=== PATIENT | female | born 1955 | race Caucasian/White ===

== ENCOUNTER → 2018-02-01 10:45 | Outpatient (REF) | payer BC, SELFPAY ==
[2018-02-01 21:06] LABS: Abs Immature Grans 0.02 k/cumm (0.0-0.09); Absolute Basophil Count 0.09 k/cumm (0.0-0.2); Absolute Eosinophil Count 0.17 k/cumm (0.0-0.7); Absolute Lymphocyte Count 1.73 k/cumm (1.2-3.4); Absolute Monocyte Count 0.49 k/cumm (0.11-0.7); Absolute Neutrophil Count 4.35 k/cumm (1.2-6.7); Basophils % 1.3; Eosinophils % 2.5; HCT 39.1 % (36.0-46.0); HGB 12.4 g/dL (12.0-15.5); Immature Grans % 0.3; Lymphocytes % 25.3; Mean Corp. HGB Concentration 31.7 g/dL (32.0-36.0); Mean Corpuscular Hemoglobin 27.4 pg (27.0-33.0); Mean Corpuscular Volume 86.5 fL (80-95); Mean Platelet Volume 11.1 fL (8.0-11.0); Monocytes % 7.2; Neutrophils % 63.4; Platelet Count 495 x1000/uL (130-400); RBC 4.52 m/cumm (4.00-5.20); RBC Distribution Width 14.4 % (11.7-14.6); White Blood Cell Count 6.85 k/cumm (4.4-10.8)
[2018-02-01 21:28] LABS: TSH 0.19 uIU/mL (0.358-3.74)
[2018-02-02 10:30] LABS: FREE T4 0.87 ng/dL (0.76-1.46)
[2018-02-02 21:40] LABS: T3, Total 124 ng/dl (97-169)
== END ==
LOC: NCHCN 10:45
PROVIDERS: PCP Physician Assistant Medical; Visit Provider Physician Assistant Medical
DX: E03.9 Hypothyroidism, unspecified (principal); R61 Generalized hyperhidrosis
CPT/HCPCS: 84439; 84443; 84480; 85025

== ENCOUNTER 2018-04-12 21:42 | Outpatient (REF) | payer BC, SELFPAY ==
[2018-04-12 22:26] LABS: Abs Immature Grans 0.03 k/cumm (0.0-0.09); Absolute Basophil Count 0.09 k/cumm (0.0-0.2); Absolute Lymphocyte Count 2.35 k/cumm (1.2-3.4); Absolute Monocyte Count 0.47 k/cumm (0.11-0.7); Absolute Neutrophil Count 5.32 k/cumm (1.2-6.7); Basophils % 1.1; Eosinophils % 2.4; HCT 36.9 % (36.0-46.0); HGB 12.2 g/dL (12.0-15.5); Immature Grans % 0.4; Lymphocytes % 27.8; Mean Corp. HGB Concentration 33.1 g/dL (32.0-36.0); Mean Corpuscular Hemoglobin 28.2 pg (27.0-33.0); Mean Corpuscular Volume 85.4 fL (80-95); Mean Platelet Volume 10.6 fL (8.0-11.0); Monocytes % 5.6; Neutrophils % 62.7; Platelet Count 525 x1000/uL (130-400); RBC 4.32 m/cumm (4.00-5.20); RBC Distribution Width 13.5 % (11.7-14.6); White Blood Cell Count 8.46 k/cumm (4.4-10.8)
[2018-04-12 22:39] LABS: Anion Gap 12.2 mmol/L (3-11); BUN 16 mg/dL (7-18); CO2 23.8 mmol/L (21.0-32.0); Calcium 9.3 mg/dL (8.5-10.1); Chloride 102 mmol/L (98-107); Glucose 112 mg/dL (70-100); Potassium 4.5 mmol/L (3.5-5.1); Sodium 138 mmol/L (136-145); TSH 0.09 uIU/mL (0.358-3.74)
== END 2018-04-12 22:02 ==
LOC: NCHCN 21:42
PROVIDERS: PCP Physician Assistant Medical; Visit Provider Specialist/Technologist Athletic Trainer
DX: E03.9 Hypothyroidism, unspecified (principal); Z00.00 Encounter for general adult medical examination without abnormal findings; M17.11 Unilateral primary osteoarthritis, right knee
CPT/HCPCS: 80048; 84443; 85025

== ENCOUNTER 2018-04-30 13:05 | Outpatient (CLI) | payer BC, SELFPAY ==
--- NOTE | 2018-04-30 15:52 | DI.RAD_ITS ---
SYMPTOM/DIAGNOSIS: KNEE PAIN LT M25.562 LEFT KNEE: Four views. There is moderate frannie-articular spurring seen in both the medial and lateral femoral tibial joint spaces. There is mild narrowing at the medial femoral tibial joint. There is marked narrowing at the patella femoral joint with lateral subluxation. Periarticular spurring is seen involving the patella femoral joint. No acute fracture or dislocation is seen. The soft tissues are unremarkable. IMPRESSION: Marked osteoarthritis of the left knee particularly involving the patella femoral joint.
== END 2018-04-30 13:25 ==
PROVIDERS: PCP Physician Assistant Medical; Visit Provider Physician Assistant Medical
DX: M25.562 Pain in left knee (principal); M17.12 Unilateral primary osteoarthritis, left knee
CPT/HCPCS: 73564

== ENCOUNTER 2018-05-07 14:01 | Outpatient (CLI) | payer BC, SELFPAY ==
--- NOTE | 2018-05-07 14:05 | DI.RAD_ITS ---
SYMPTOMS/DIAGNOSIS: RT ANKLE INJURY RIGHT ANKLE: Three views were obtained. There appears to be mild soft tissue swelling of the ankle. The ankle mortise appears well maintained. No fracture is seen.
== END 2018-05-07 14:21 ==
PROVIDERS: PCP Physician Assistant Medical; Visit Provider Student in an Organized Health Care Education/Training Program
DX: M25.571 Pain in right ankle and joints of right foot (principal); M79.89 Other specified soft tissue disorders
CPT/HCPCS: 73610

== ENCOUNTER 2018-05-16 18:40 | Outpatient (REF) | payer BC, SELFPAY ==
[2018-05-16 20:15] LABS: Hemoglobin A1C 6.2 % (4.5-6.2)
[2018-05-16 20:24] LABS: TSH 0.37 uIU/mL (0.358-3.74)
== END 2018-05-16 19:00 ==
LOC: NCHCN 18:40
PROVIDERS: PCP Physician Assistant Medical; Visit Provider Physician Assistant Medical
DX: Z00.00 Encounter for general adult medical examination without abnormal findings (principal); Z13.1 Encounter for screening for diabetes mellitus; Z13.29 Encounter for screening for other suspected endocrine disorder
CPT/HCPCS: 83036; 84443

== ENCOUNTER 2018-06-11 00:38 | Outpatient (CLI) | payer BC, SELFPAY ==
--- NOTE | 2018-06-11 09:49 | DI.MRI_ITS ---
SYMPTOMS/DIAGNOSIS: LEFT KNEE ACUTE FLARE OF PAIN DUE TO INJURY 6 WEEKS AGO, ? CONTUSION LEFT KNEE MRI: MRI examination of the knee was performed according to the usual protocol. The examination is of poor technical quality due to patient size and motion. There are severe degenerative changes of the patellofemoral joint with lateral patellar subluxation and prominent lateral osteophytes of the patella and femur. There is a small knee joint effusion. There is abnormal signal in the lateral femoral condyle, which is nonspecific and which may be associated with degenerative change, the possibility of acute bony trabecular injury not excluded. There are prominent osteophytes of distal femur and proximal tibia and loss of cartilaginous joint spaces of the tibiofemoral joints. There is peripheral displacement of the lateral meniscus, which is probably torn in its posterior horn. Medial meniscus poorly visualized but also appears to lie somewhat peripheral to the joint and which may be torn. No gross cruciate ligament injury seen. CONCLUSION: Very limited study. Severe DJD; probable lateral meniscal tear; question bony trabecular injury, lateral femoral condyle.
== END 2018-06-11 00:58 ==
PROVIDERS: PCP Physician Assistant Medical; Visit Provider Physician Assistant
DX: M25.562 Pain in left knee (principal); M17.12 Unilateral primary osteoarthritis, left knee; M25.462 Effusion, left knee
CPT/HCPCS: 73721

== ENCOUNTER 2018-06-13 00:17 | Outpatient (CLI) | payer BC, SELFPAY ==
--- NOTE | 2018-06-13 08:21 | DI.MAMMO_ITS ---
SYMPTOMS/DIAGNOSIS: SCREENING, HEALTH MAINTENANCE EXAM, Z00.8 MAMMOGRAM: Mammograms were interpreted according to the usual protocol including computer analysis with CAD system, tomosynthesis and C view imaging. The breasts are of moderate density with fairly symmetrical distribution of fibroglandular tissue. No dominant mass or clumped microcalcification identified in either breast. Current examination is compared with multiple previous examinations including March 2017. Previously noted bilobed well- circumscribed nodule of the left breast is a little larger on today's examination measuring about 5 x 7 mm in diameter as compared to about 4 x 6 mm on the previous examination. No previous ultrasound examination is available for comparison. I would suggest that an additional evaluation of this finding with breast ultrasound be obtained for further characterization. No other significant findings or change. and there has been no gross interval change in appearance in comparison with the previous studies. CONCLUSION: Mild interval increase in size of indeterminate but probably benign well-circumscribed left breast mass, lower outer quadrant. Additional evaluation with breast ultrasound recommended. Category 0, breast density category B. FINAL MQSA ASSESSMENT OF FINDINGS: Probably benign. Six month follow-up recommended. Category 3. Patient will receive a letter notifying them of these results. BI-RADS category B. There are scattered areas of fibroglandular density.
== END 2018-06-13 00:37 ==
PROVIDERS: PCP Physician Assistant Medical; Visit Provider Physician Assistant Medical
DX: Z00.00 Encounter for general adult medical examination without abnormal findings (principal); Z12.31 Encounter for screening mammogram for malignant neoplasm of breast; R92.8 Other abnormal and inconclusive findings on diagnostic imaging of breast
CPT/HCPCS: 77063; 77067

== ENCOUNTER 2018-06-15 00:51 | Outpatient (CLI) | payer BC, SELFPAY ==
--- NOTE | 2018-06-15 10:00 | DI.US_ITS ---
SYMPTOM/DIAGNOSIS: F/U ABNL MAMMO, INCREASE IN SIZE OF MASS LEFT BREAST ULTRASOUND: At ultrasound, a small, well circumscribed nodule is noted in the infralateral portion of the left breast likely representing a very small intramammary lymph node or conceivably a very small cyst. Suffice to say, there is nothing to suggest a malignancy in this patient. Category 3. Follow up surveillance with a repeat ultrasound in 6 months is recommended. MQSA ASSESSMENT OF FINDINGS: Probably benign. Six month follow-up recommended. Category 3. Patient will receive a letter notifying them of these results.
== END 2018-06-15 01:11 ==
PROVIDERS: PCP Physician Assistant Medical; Visit Provider Physician Assistant Medical
DX: Z12.31 Encounter for screening mammogram for malignant neoplasm of breast (principal); R92.8 Other abnormal and inconclusive findings on diagnostic imaging of breast; N60.82 Other benign mammary dysplasias of left breast
CPT/HCPCS: 76642

== ENCOUNTER 2018-09-06 14:24 | Outpatient (CLI) | payer BC, SELFPAY ==
--- NOTE | 2018-09-06 14:30 | DI.RAD_ITS ---
SYMPTOMS/DIAGNOSIS: COUGH R05 PA AND LATERAL CHEST: The lungs are well expanded and free of infiltrate. There is no pleural effusion. The cardiovascular structures appear intact. The tracheal air column and mediastinum appear unremarkable. SUMMARY: No evidence of acute cardiopulmonary disease.
== END 2018-09-06 14:44 ==
PROVIDERS: PCP Physician Assistant Medical; Visit Provider Nurse Practitioner Family
DX: R05 Cough (principal)
CPT/HCPCS: 71046

== ENCOUNTER 2018-10-04 12:30 | Outpatient (CLI) | payer BC, SELFPAY ==
--- NOTE | 2018-10-04 13:01 | DI.RAD_ITS ---
SYMPTOMS/DIAGNOSIS: LT FOOT PAIN, M79.672 LEFT FOOT: Three views of the foot were obtained. There is a fracture of the fifth metatarsal involving the distal diaphysis of the bone with moderate displacement. No additional fracture seen. Note is made of mild degenerative changes of the mid foot joints and IP joints. CONCLUSION: Fifth metatarsal fracture as described above.
== END 2018-10-04 12:50 ==
PROVIDERS: PCP Physician Assistant Medical; Visit Provider Physician Assistant Medical
DX: M79.672 Pain in left foot (principal); S92.352A Displaced fracture of fifth metatarsal bone, left foot, initial encounter for closed fracture
CPT/HCPCS: 73630

== ENCOUNTER 2018-11-16 08:08 | Outpatient (CLI) | payer BC, SELFPAY ==
--- NOTE | 2018-11-16 08:00 | DI.RAD_ITS ---
SYMPTOM/DIAGNOSIS: LT FOOT PAIN, RT ANKLE PAIN, H/O TRAUMA, RT FOOT PAIN LEFT FOOT: Three views. Comparison is made with 10/04/18. There does not appear to be any significant change in alignment of the fracture involving the left fifth metatarsal. There has developed significant callous formation about the fracture site consistent with interval healing. No new fractures or dislocations are present. IMPRESSION: Healing left fifth metatarsal fracture. RIGHT FOOT: Three views. No acute fracture or dislocation is seen. The soft tissues are grossly unremarkable. There is a small enthesophyte at the posterior calcaneus. A small spur is seen at the posterior inferior calcaneus. Mild degenerative changes are seen in the foot. IMPRESSION: No acute abnormality. RIGHT ANKLE: Three views. No acute or healing fracture or dislocation is seen. There is a small spur at the posterior superior aspect of the calcaneus and a small plantar calcaneal spur. The bones are normally mineralized. The ankle joint is well maintained. The soft tissues are unremarkable. IMPRESSION: No acute abnormality.
== END 2018-11-16 08:28 ==
PROVIDERS: PCP Physician Assistant Medical; Visit Provider Student in an Organized Health Care Education/Training Program
DX: S92.352D Displaced fracture of fifth metatarsal bone, left foot, subsequent encounter for fracture with routine healing (principal); S93.401A Sprain of unspecified ligament of right ankle, initial encounter; M25.571 Pain in right ankle and joints of right foot; M79.671 Pain in right foot
CPT/HCPCS: 73610; 73630

== ENCOUNTER 2018-12-17 12:43 | Outpatient (CLI) | payer BC, SELFPAY ==
--- NOTE | 2018-12-17 13:26 | DI.RAD_ITS ---
SYMPTOMS/DIAGNOSIS: NEUROPATHY, G62.9 LUMBAR SPINE: No compression fractures are seen. There is moderate narrowing of the L2-3 disc and moderate endplate osteophytes. There is severe narrowing of the L5-S1 disc and moderate osteophytes. There are facet degenerative changes, greatest at L4- 5 and L5-S1. No spondylolysis, spondylolisthesis or scoliosis is seen. The hip joint spaces are well maintained. The SI joints show minimal degenerative changes. IMPRESSION: Degenerative disc changes at L2-3, L4-5 and L5-S1.
== END 2018-12-17 13:03 ==
PROVIDERS: PCP Physician Assistant Medical; Visit Provider Physician Assistant Medical
DX: G62.9 Polyneuropathy, unspecified (principal); M51.17 Intervertebral disc disorders with radiculopathy, lumbosacral region; M47.817 Spondylosis without myelopathy or radiculopathy, lumbosacral region
CPT/HCPCS: 72110

== ENCOUNTER 2018-12-17 13:35 | Outpatient (REF) | payer BC, SELFPAY ==
[2018-12-17 22:40] LABS: TSH 0.03 uIU/mL (0.358-3.74); Vitamin B12 260 pg/mL (193-986)
== END 2018-12-17 13:55 ==
LOC: NCHCN 13:35
PROVIDERS: PCP Physician Assistant Medical; Visit Provider Physician Assistant Medical
DX: G62.9 Polyneuropathy, unspecified (principal)
CPT/HCPCS: 82607; 83036; 84443

== ENCOUNTER 2018-12-31 11:39 | Outpatient (CLI) | payer BC, SELFPAY ==
--- NOTE | 2018-12-31 11:00 | DI.US_ITS ---
SYMPTOM/DIAGNOSIS: F/U LT BREAST MASS, R62.8 LEFT BREAST ULTRASOUND: The upper outer and lower outer quadrants of the left breast were evaluated sonographically. No cystic or solid masses are seen sonographically. IMPRESSION: Negative left breast ultrasound. No suspicious sonographic masses are seen. Category 1. MQSA ASSESSMENT OF FINDINGS: Negative. Category 1. Patient will receive a letter notifying them of these results.
== END 2018-12-31 11:59 ==
PROVIDERS: PCP Physician Assistant Medical; Visit Provider Physician Assistant Medical
DX: Z12.31 Encounter for screening mammogram for malignant neoplasm of breast (principal); R92.8 Other abnormal and inconclusive findings on diagnostic imaging of breast; N64.59 Other signs and symptoms in breast
CPT/HCPCS: 76642

== ENCOUNTER 2019-03-29 19:22 | Outpatient (REF) | payer BC, SELFPAY ==
[2019-03-29 19:57] LABS: Abs Immature Grans 0.02 k/cumm (0.0-0.09); Absolute Basophil Count 0.09 k/cumm (0.0-0.2); Absolute Eosinophil Count 0.14 k/cumm (0.0-0.7); Absolute Lymphocyte Count 1.51 k/cumm (1.2-3.4); Absolute Monocyte Count 0.38 k/cumm (0.11-0.7); Absolute Neutrophil Count 4.13 k/cumm (1.2-6.7); Basophils % 1.4; Eosinophils % 2.2; HCT 37.6 % (36.0-46.0); HGB 11.9 g/dL (12.0-15.5); Immature Grans % 0.3; Lymphocytes % 24.1; Mean Corp. HGB Concentration 31.6 g/dL (32.0-36.0); Mean Corpuscular Hemoglobin 26.7 pg (27.0-33.0); Mean Corpuscular Volume 84.5 fL (80-95); Mean Platelet Volume 10.6 fL (8.0-11.0); Monocytes % 6.1; Neutrophils % 65.9; Platelet Count 495 x1000/uL (130-400); RBC 4.45 m/cumm (4.00-5.20); RBC Distribution Width 14.8 % (11.7-14.6); White Blood Cell Count 6.27 k/cumm (4.4-10.8)
[2019-03-29 20:28] LABS: ALT 39 U/L (14-59); AST 26 U/L (15-37); Albumin 3.8 g/dL (3.4-5.0); Alkaline Phosphatase 98 U/L (46-116); Anion Gap 8.3 mmol/L (3-11); BUN 12 mg/dL (7-18); Bilirubin, Total 0.5 mg/dL (0.2-1.0); CO2 27.7 mmol/L (21.0-32.0); CREATININE 0.58 mg/dL (0.55-1.02); Calcium 9.2 mg/dL (8.5-10.1); Calculated LDL 93 mg/dL; Chloride 104 mmol/L (98-107); Cholesterol 190 mg/dL (50-200); Glucose 116 mg/dL (70-100); HDL Cholesterol 82 mg/dL (40-60); Potassium 4.7 mmol/L (3.5-5.1); Sodium 140 mmol/L (136-145); TSH 0.12 uIU/mL (0.36-3.74); Total Protein 7.1 g/dL (6.4-8.2); Triglyceride 78 mg/dL (30-150)
== END 2019-03-29 19:42 ==
LOC: NCHCN 19:22
PROVIDERS: PCP Physician Assistant Medical; Visit Provider Physician Assistant Medical
DX: E03.9 Hypothyroidism, unspecified (principal)
CPT/HCPCS: 80053; 80061; 84443; 85025

== ENCOUNTER 2019-05-10 11:14 | Outpatient (REF) | payer BC, SELFPAY ==
[2019-05-10 19:36] LABS: TSH 0.02 uIU/mL (0.36-3.74)
== END 2019-05-10 11:34 ==
LOC: NCHCN 11:14
PROVIDERS: PCP Physician Assistant Medical; Visit Provider Physician Assistant Medical
DX: E03.9 Hypothyroidism, unspecified (principal)
CPT/HCPCS: 84443

== ENCOUNTER 2019-06-28 16:23 | Outpatient (REF) | payer BC, SELFPAY ==
[2019-06-28 20:10] LABS: TSH 0.28 uIU/mL (0.36-3.74)
[2019-06-30 16:58] LABS: T3, Total 133 ng/dL (97-169)
== END 2019-06-28 16:43 ==
LOC: NCHCN 16:23
PROVIDERS: PCP Physician Assistant Medical; Visit Provider Physician Assistant Medical
DX: E03.9 Hypothyroidism, unspecified (principal)
CPT/HCPCS: 84443; 84480; 84481

== ENCOUNTER 2019-07-08 11:35 | Outpatient (REF) | payer BC, SELFPAY ==
[2019-07-08 21:59] LABS: FREE T4 1.02 ng/dL (0.76-1.46)
== END 2019-07-08 11:55 ==
LOC: NCHCN 11:35
PROVIDERS: PCP Physician Assistant Medical; Visit Provider Physician Assistant Medical
DX: E03.9 Hypothyroidism, unspecified (principal)
CPT/HCPCS: 84439

== ENCOUNTER 2019-09-17 09:38 | Emergency (ER) | payer BC, SELFPAY ==
[2019-09-17 09:42] VITALS: BP 155/81; PULSE 92; RESP 18; TEMP 37.1; O2SAT 96
--- NOTE | 2019-09-17 09:55 | ED.GENADUL_ITS ---
Discharge Plan Disposition Patient Disposition: HOME Condition: Stable Discharge Details Chief Complaint: Laceration Clinical Impression: Laceration of finger Primary Care Provider: Brenda Hedrick ED Provider: Dorene Johnson Home Meds and New Rx's Prescriptions: Continued Centrum Silver Women 8 mg iron-400 mcg-300 mcg tablet 1 tab PO DAILY RF: 0 azelastine-fluticasone 137-50 mcg/spray spray,non-aerosol 1 spray SPENSER Q12H RF: 0 aspirin 325 MG tablet 325 mg PO DAILY RF: 0 albuterol sulfate [Proventil HFA] 6.7 GM HFA aerosol inhaler 6.7 gm Inhalation PRN PRNRF: 0 levothyroxine 25 mcg tablet 12.5 mcg PO DAILY RF: 0 sertraline [Zoloft] 50 mg tablet 50 mg PO QPM RF: 0 modafinil 100 MG tablet 100 mg PO PRN PRNRF: 0 Advair HFA 60 PUFF HFA aerosol inhaler 2 puff Inhalation BID RF: 0 Discharge Instructions Instructions: Finger Laceration (ED), Skin Adhesive Care (ED) Additional Instructions: Follow up with primary care provider in 3-5 days. Return to ED sooner if any worsening or concerns. Increase oral fluids. Please take Tylenol or Ibuprofen with food every 4-6 hours as needed for pain and swelling. Glue fall off in 4 to 6 days. Do not scrub it. Return for any worsening symptoms or signs of infection redness swelling drainage or red streaks. Referrals: Brenda Hedrick PA [Primary Care Provider] - Medical Decision Making 64-year-old female presents with 0.5 cm laceration to the distal tip of her left middle finger. This occurred proximately 30 minutes prior to arrival. Upon initial exam bleeding is controlled with pressure. She has full range of motion to her digit. No other complaints. Bleeding is controlled with pressure, laceration closed with skin adhesive as noted in procedure note. Wound well approximated. Patient is up-to-date on her tetanus vaccination. Patient discharged with home care, verbalized understanding. HPI General Mode of arrival: ambulatory . Date/Time Provider Initiated Documentation: 09/17/19 09:48 . Limitations to Documentation: no limitations . Information obtained by: patient . HPI Narrative: 64-year-old female presents with 0.5 cm laceration to the distal tip of her left middle finger. This occurred proximately 30 minutes prior to arrival. Upon initial exam bleeding is controlled with pressure. She has full range of motion to her digit. No other complaints. Related Data Home Medications Medication Instructions Recorded Confirmed albuterol sulfate [Proventil HFA] 6.7 gm INHALATION PRN PRN 03/09/13 09/17/19 modafinil 100 mg PO PRN PRN 03/06/15 09/17/19 aspirin 325 mg PO DAILY tab-cap 03/20/17 09/17/19 Advair HFA 2 puff INHALATION BID 05/08/17 09/17/19 azelastine-fluticasone 137 mcg-50 1 spray SPENSER Q12H 05/07/18 09/17/19 mcg/spray nasal spray multivit with 1 tab PO DAILY 05/07/18 09/17/19 vcfvjcns-lyac-TL-lutein 8 mg iron-400 mcg-300 mcg tablet levothyroxine 25 mcg tablet 12.5 mcg PO DAILY tab 07/01/19 09/17/19 sertraline 50 mg tablet 50 mg PO QPM tab 07/01/19 09/17/19 Allergies Allergy/AdvReac Type Severity Reaction Status Date / Time Sulfa (Sulfonamide Allergy Severe Hives Verified 09/17/19 09:51 Antibiotics) hydrocodone bitartrate Allergy Mild Itching Verified 09/17/19 09:51 [From Vicodin] methimazole [From Tapazole] Allergy Verified 09/17/19 09:51 prednisone Allergy Itching Verified 09/17/19 09:51 General Stated Complaint: Laceration SOLANGE: 4 Review of Systems Narrative: Constitutional: Negative for weight loss, alert and oriented, well groomed, normal body habitus, appears comfortable. HEENT: Denies trauma, headaches, blurry vision, nasal discharge, sore throat, trouble swallowing. Chest: Denies chest pain, palpitations, irregular rhythm, hypertension. Respiratory: Denies Shortness of breath, cough, hemoptysis. [facility] Medical History Anxiety Asthma Atrophic vaginitis Back pain, chronic Depression History of pulmonary embolus (PE) Hypothyroidism Impaired fasting glucose Obesity Osteoarthritis Surgical History Colonoscopy - MAC (05/15/17) Social History Smoking/Tobacco Use Status: Never Alcohol Intake: current Alcohol Intake frequency: a few times a week Drug use: Never Current gender identity: female Do you feel safe at home: Yes Do you feel safe in your relationship?: Yes Exam Narrative Exam Narrative: Constitutional: Allert and oriented x3. Appears stated age. Normal body habitus. Head: Normocephalic, no trauma. Eyes: Pupils PERRLA, Red reflex noted, EOM's intact. Eyelids symmetrical withour lesions, discharge, or swelling. ENT: Bilateral TM's WNL, External ear normal to inspection, no mastoid TTP, swelling, or erythema, Nasal turbinates WNL, no nasal discharge. Normal dentition, Posterior pharynx WNL, no exudate. Chest: RRR, Normal S1, S2, distal pulses intact. Resp: Lungs clear to auscultation bilaterally, no wheezes, rales, or rhonchi. Musculoskeletal: Normal gait, 5/5 strength to all four extremities. Skin: No suspicious rashes or lesions. Capillary refill less than 2 sec. laceration noted to the distal tip of her left middle finger. Neurologic: Cranial nerves II-XII intact. Alert and oriented x 3. DTR's intact. Hematologic/Lymphatic: No ecchymosis, no lymphadenopathy. Skin Trauma: laceration left distal 3rd finger linear Course Vital Signs Vital signs: Vital Signs Temperature 37.1 C 09/17/19 09:42 Pulse 92 H 09/17/19 09:42 Respiratory Rate 18 09/17/19 09:42 Blood Pressure 155/81 H 09/17/19 09:42 Pulse Oximetry 96 09/17/19 09:42 Temperature 37.1 C 09/17/19 09:42 Temperature Source Oral 09/17/19 09:42 Pulse 92 H 09/17/19 09:42 Respiratory Rate 18 09/17/19 09:42 Respiratory Effort Non-Labored 09/17/19 09:46 Blood Pressure 155/81 H 09/17/19 09:42 Blood Pressure Position Sitting 09/17/19 09:42 Pulse Oximetry 96 09/17/19 09:42 Oxygen Delivery Method Room Air 09/17/19 09:42 Oxygen Flow Rate 0 09/17/19 09:42 Pain Level 0 09/17/19 09:42 Procedures Laceration Laceration 1: Site: hand Side (If applicable): left Size (cm): 0.5 Description: linear Skin layer closed with: other (Skin adhesive)
== END 2019-09-17 10:13 | disposition home or self-care (01) ==
LOC: ER 10:10
PROVIDERS: Emergency Provider Registered Nurse Emergency; PCP Physician Assistant Medical
DX: S61.213A Laceration without foreign body of left middle finger without damage to nail, initial encounter (principal); W26.0XXA Contact with knife, initial encounter
CPT/HCPCS: 12001

== ENCOUNTER 2019-10-25 15:59 | Outpatient (REF) | payer BC, SELFPAY ==
[2019-10-25 19:15] LABS: TSH (W/Ref FT4) 0.34 uIU/mL (0.36-3.74)
[2019-10-25 19:36] LABS: FREE T4 0.93 ng/dL (0.76-1.46)
== END 2019-10-25 16:19 ==
LOC: NCHCN 15:59
PROVIDERS: PCP Physician Assistant Medical; Visit Provider Physician Assistant Medical
DX: E03.9 Hypothyroidism, unspecified (principal)
CPT/HCPCS: 84439; 84443

== ENCOUNTER 2020-03-23 16:29 | Outpatient (REF) | payer BC, SELFPAY ==
--- NOTE | 2020-03-23 15:30 | SKI_PTH ---
PATIENT: Zuly Liu LOC: [facility] U#:[id number] AGE/SX: 64/F ROOM: RE03/23/[address]: Rene Kinsey DO : 1955 BED: DIS: 03/23/2020 SPEC #: [id number] RECD: 03/24/20 09:28 STATUS: RAÚL REQ #: [id number] SHER: 03/23/20 15:[address]: Rene Kinsey DEPT: Surgical Specimen RECD BY: Uyen Breen ENTERED: 03/24/20 09:28 SP TYPE: SKI OTHR DR: Brenda Hedrick Tissues: 1 - SKIN BIOPSY(SHAVE/PUNCH) Procedures: SKIN LEVEL 4 Comments: [id number]
== END 2020-03-23 16:49 ==
LOC: LBN 16:29
PROVIDERS: PCP Physician Assistant Medical; Visit Provider Otolaryngology Otolaryngology/Facial Plastic Surgery
DX: L82.1 Other seborrheic keratosis (principal)
CPT/HCPCS: 88305

== ENCOUNTER 2020-05-11 17:57 | Outpatient (REF) | payer BC, SELFPAY ==
[2020-05-11 19:56] LABS: TSH 0.08 uIU/mL (0.36-3.74)
== END 2020-05-11 18:17 ==
LOC: NCHCN 17:57
PROVIDERS: PCP Physician Assistant Medical; Visit Provider Physician Assistant Medical
DX: E03.9 Hypothyroidism, unspecified (principal)
CPT/HCPCS: 84443

== ENCOUNTER 2020-07-22 20:49 | Outpatient (REF) | payer BC, SELFPAY ==
[2020-07-22 20:16] LABS: Abs Immature Grans 0.03 10^3/uL (0.0-0.06); Absolute Eosinophil Count 0.14 10^3/uL (0.0-0.7); Absolute Lymphocyte Count 2.15 10^3/uL (1.2-3.4); Absolute Monocyte Count 0.58 10^3/uL (0.1-0.8); Absolute Neutrophil Count 5.98 10^3/uL (1.2-6.7); Basophils % 1.1; Eosinophils % 1.6; HCT 39.5 % (36.0-46.0); HGB 12.8 g/dL (11.2-15.7); Immature Grans % 0.3; Lymphocytes % 23.9; MCHC 32.4 % (32.0-36.0); MCV 89.4 fL (80-95); MPV 10.2 fL (8.0-11.0); Monocytes % 6.5; Neutrophils % 66.6; Nucleated RBC 0 %; Platelet Count 627 10^3/uL (130-400); RBC 4.42 10^6/uL (3.93-5.22); RDW 13.8 % (11.7-14.6); RDW-SD 44.7 fL; WBC 8.98 10^3/uL (4.4-10.8)
[2020-07-22 20:55] LABS: ALT 35 U/L (14-59); AST 17 U/L (15-37); Albumin 4.1 g/dL (3.4-5.0); Alkaline Phosphatase 118 U/L (46-116); Anion Gap 10.4 mmol/L (3-11); BUN 5 mg/dL (7-18); Bilirubin, Total 0.6 mg/dL (0.2-1.0); CO2 26.6 mmol/L (21.0-32.0); CREATININE 0.6 mg/dL (0.55-1.02); Calcium 9.6 mg/dL (8.5-10.1); Chloride 102 mmol/L (98-107); Glucose 92 mg/dL (74-106); Potassium 4.6 mmol/L (3.5-5.1); Sodium 139 mmol/L (136-145); TSH 0.66 uIU/mL (0.36-3.74); Total Protein 7.5 g/dL (6.4-8.2)
== END 2020-07-22 20:50 | disposition home or self-care (01) ==
LOC: NCHCN 20:49
PROVIDERS: PCP Physician Assistant Medical; Visit Provider Physician Assistant Medical
DX: E03.9 Hypothyroidism, unspecified (principal)
CPT/HCPCS: 80053; 84443; 85025

== ENCOUNTER 2020-08-05 01:25 | Outpatient (CLI) | payer BC, SELFPAY ==
--- NOTE | 2020-08-05 | DI.CT_ITS ---
EXAM: CT ABDOMEN PELVIS W CLINICAL HISTORY: LOW ABD PAIN, R10.30. TECHNIQUE: Imaging Protocol: Axial computed tomography images with coronal and sagittal reformatted images were created and reviewed CONTRAST MATERIAL: Intravenous: Omnipaque 100cc Oral: None COMPARISON: No exams were available for comparison FINDINGS: VISUALIZED LUNG BASES: Tiny 2 millimeters subpleural nodule noted in the lateral basal segment left l ower lobe. No pleural effusions.. ABDOMEN: There is no ascites. LIVER: There are no obvious focal hepatic lesions evident . GALLBLADDER/BILIARY: No obvious gallbladder pathology. CBD is not dilated. PANCREAS: No evidence of pancreatic mass nor dilatation of the pancreatic duct. SPLEEN: Spleen size is upper normal-minimally prominent. There are no intrasplenic lesions. Splenic and portal veins are patent. ADRENALS: There is a nodule in the right adrenal gland which measures 1.6 by 1.2 cm. Left adrenal gl and unremarkable. KIDNEYS:No cysts evident. No solid renal masses. No calculi nor hydronephrosis.. ABDOMINAL AORTA: Abdominal aorta is not enlarged and there is no pwabypczrlawoef-zxil-rlnhtu adenopat hy. ABDOMINAL WALL/GI: No evidence of significant anterior abdominal wall hernia. No bowel obstruction. PELVIS: GI: There is a round 4 millimeter calcification in the right-sided mesentery medial to the cecum. Th is may be an appendicolith. There is no obvious acute appendicitis.No evidence of sigmoid diverticul itis. LYMPH NODES: There is no intrapelvic nor inguinal adenopathy. REPRODUCTIVE: Age-appropriate URINARY BLADDER: No calculi nor obvious masses evident OSSEOUS: Chronic degenerative disc disease lower lumbar spine. No lytic osseous lesions identified. IMPRESSION: 1. There is a 16 x 12 millimeter nodule in the right adrenal gland, probably an incidental adenoma. There are no findings in the opposite-left adrenal gland. 2. 4 millimeter calcification noted in the right lower quadrant mesentery. This may represent a smal l calcified lymph node. No other consideration would be for a possible appendicoliths. There is, ho wever, no evidence of obvious acute appendicitis. 3. There is no ascites. 4. Tiny subpleural nodule in the left lung base noted. No pleural effusions. RADIATION DOSE DELIVERED: 1,031.15mGy.cm Total DLP DATA REPOSITORY: All CT scans at this facility are submitted to the National Radiology Data Registry (NRDR) Dose Index Registry (DIR) with the [employer] (ACR). RADIATION OPTIMIZATION: All CT scans at this facility use at least one of these dose optimization te chniques: automated exposure control; mA and/or kV adjustment per patient size (includes targeted exa ms where dose is matched to clinical indication); or iterative reconstruction.
[2020-08-05] MEDS: Omnipaque 350 MG/ML 100 ML BTL IV (09:02)
[2020-08-05] MEDS: Normal Saline Flush 10 ML SYR IVP (09:10)
[2020-08-05] MEDS: Normal Saline - Diluent 50 ML VIAL IV (09:10)
[2020-08-05] MEDS: Omnipaque 350 MG/ML 50 ML BTL PO (09:11)
[2020-08-05] MEDS: Breeza Beverage 473 ML BTL PO (09:11)
== END 2020-08-05 01:26 ==
LOC: DI 01:25
PROVIDERS: PCP Physician Assistant Medical; Visit Provider Physician Assistant Medical
DX: R10.31 Right lower quadrant pain (principal); E27.8 Other specified disorders of adrenal gland; R91.1 Solitary pulmonary nodule
CPT/HCPCS: 74177; J3490; Q9967

== ENCOUNTER 2020-09-29 01:52 | Outpatient (CLI) | payer BC, SELFPAY ==
--- NOTE | 2020-09-29 | DI.MAMMO_ITS ---
EXAM: MG MAMMO SCREENING CLINICAL HISTORY: SCREENING,HEALTH MAINTENANCE EXAM,Z00.8 TECHNIQUE: Bilateral full field digital CC and MLO mammographic images were obtained with 3D tomosyn thesis and utilizing computer aided detection (CAD). COMPARISON: Available for comparison. FINDINGS: Masses/Architectural Distortion: There has been interval increase in size in the bilobed nodule in th e outer left breast. It currently measures 9 mm compared with 7 mm on the prior examination. Microcalcifications: No suspicious pleomorphic-type are seen. Skin Thickening/Nipple Retraction: None. IMPRESSION: 1. Interval increase in size of left breast nodule. 2. Additional views of the left breast and a left breast ultrasound are requested for further evaluat ion. BI-RADS Category 0 - Assessment Incomplete: Need additional imaging evaluation Breast Density - Category B - Scattered areas of fibroglandular density Breast density category C or D implies that the patient has dense breast tissue. Dense breast tissue is very common and is not abnormal but dense breast tissue can make it harder to find cancer on a ma mmogram. Also, dense breast tissue may increase their breast cancer risk. This information about the result of the mammogram report was provided to the patient to raise their awareness. Use this report when you speak with the patient about their risks for breast cancer, which includes their family hist ory. At that time, you may recommend for more screening tests (Ultrasound or MRI) as they might be us eful based on their risk. A negative radiographic report should not delay biopsy if a dominant or clinically suspicious mass is present. Up to ten percent of cancers are not identified on mammography. A negative report may reinforce clinical impression. Adenosis and dense breasts may obscure an underlying neoplasm. False positive reports average 6 to 10%. Patient will receive a letter notifying them of these results.
== END 2020-09-29 02:12 ==
PROVIDERS: PCP Physician Assistant Medical; Visit Provider Physician Assistant Medical
DX: Z00.00 Encounter for general adult medical examination without abnormal findings (principal); Z12.31 Encounter for screening mammogram for malignant neoplasm of breast; R92.8 Other abnormal and inconclusive findings on diagnostic imaging of breast
CPT/HCPCS: 77063; 77067

== ENCOUNTER 2020-10-02 03:37 | Outpatient (CLI) | payer BC, SELFPAY ==
--- NOTE | 2020-10-02 | DI.US_ITS ---
EXAM: MG MAMMO SCREEN CALL BACK UNI and U/S breast LT limited CLINICAL HISTORY: F/U MAMMO, INCREASE IN SIZE OF LT BREAST NODULE. TECHNIQUE: Craniocaudal and mediolateral oblique Full Field Digital Mammography views of the left br east with Computer Aided Diagnosis followed by Tomosynthesis and left breast ultrasound. COMPARISON: Previous available for comparison. FINDINGS: Mammography/Tomosynthesis: Masses/Architectural Distortion: There is again seen a well-circumscribed nodule in the outer left br east. Microcalcifictions: No suspicious pleomorphic-type are seen. Skin Thickening/Nipple Retraction: None. Left breast US: Echotexture: Normal appearance of the glandular tissue. Shadowing: No suspicious foci. Cyst: There is a 0.9 x 0.4 x 0.7 cm cyst at the 4 o'clock position of the left breast 8 cm from the n ipple. This would appear to correspond to the mammographic abnormality. Solid lesions: None seen. Ductal dilation: None. IMPRESSION: 1. No evidence of malignancy is noted. 2. Unless there is more urgent need, follow-up screening mammography is recommended, as per [employer] [place] guidelines. 3. The findings were discussed with the patient on the date of the examination. BI-RADS Category 2 - Benign Findings Breast Density - Category B - Scattered areas of fibroglandular density Breast density Category C or D implies that the patient has dense breast tissue. Dense breast tissue can make it harder to find cancer on a mammogram. Dense breast tissue is also associated with an incr eased risk of breast cancer. This information about the result of the mammogram report was provided to the patient to raise their awareness. Use this report when you speak with the patient about their risks for breast cancer, which includes their family history. At that time, you may recommend additional screening tests (Ultrasoun d or MRI) as these tests may add significant information. A negative radiographic report should not delay biopsy if a dominant or clinically suspicious mass is present. Up to ten percent of cancers are not identified on mammography. A negative report may reinforce clinical impression. Adenosis and dense breasts may obscure an underlying neoplasm. False positive reports average 6 to 10%. Patient will receive a letter notifying them of these results.
== END 2020-10-02 03:57 ==
PROVIDERS: PCP Physician Assistant Medical; Visit Provider Physician Assistant Medical
DX: Z12.31 Encounter for screening mammogram for malignant neoplasm of breast (principal); R92.8 Other abnormal and inconclusive findings on diagnostic imaging of breast; N60.02 Solitary cyst of left breast
CPT/HCPCS: 76642; 77063; 77067

== ENCOUNTER 2021-02-08 15:40 | Outpatient (CLI) | payer BC, SELFPAY ==
--- NOTE | 2021-02-08 15:15 | DI.RAD_ITS ---
Exam(s) XR KNEE LT 3V AP,LAT,SIENNA EXAM: XR KNEE LT 3V AP,LAT,SIENNA CLINICAL HISTORY: LEFT KNEE PAIN. TECHNIQUE: 2D digital imaging was performed. COMPARISON: CR LEFT KNEE 4+ VIEWS from 07/13/2015 FINDINGS: There is no evidence of fracture or obvious joint effusion. Advanced vyzn-hy-nrfo narrowing of the p atellofemoral compartment is unchanged. Moderate-advanced degenerative changes in the medial lateral compartments are again noted. No osseous lesions. IMPRESSION: Tricompartmental osteoarthritic degenerative changes again noted. DATA REPOSITORY: RADIATION DOSE DELIVERED:
== END 2021-02-08 15:41 | disposition home or self-care (01) ==
LOC: DIORS 15:40
PROVIDERS: PCP Physician Assistant Medical; Visit Provider Student in an Organized Health Care Education/Training Program
DX: M25.562 Pain in left knee (principal); M17.12 Unilateral primary osteoarthritis, left knee
CPT/HCPCS: 73562

== ENCOUNTER 2021-02-10 10:17 | Outpatient (REF) | payer BC, SELFPAY ==
[2021-02-10 14:34] LABS: Abs Immature Grans 0.03 10^3/uL (0.0-0.06); Absolute Basophil Count 0.07 10^3/uL (0.0-0.2); Absolute Monocyte Count 0.43 10^3/uL (0.1-0.8); Absolute Neutrophil Count 5.61 10^3/uL (1.2-6.7); Basophils % 0.9; Eosinophils % 1.3; HCT 39.2 % (36.0-46.0); HGB 12.6 g/dL (11.2-15.7); Immature Grans % 0.4; Lymphocytes % 19.4; MCH 28.6 pg (27.0-33.0); MCHC 32.1 % (32.0-36.0); MCV 89.1 fL (80-95); MPV 10.4 fL (8.0-11.0); Monocytes % 5.6; Neutrophils % 72.4; Nucleated RBC 0 %; Platelet Count 539 10^3/uL (130-400); RDW 13.3 % (11.7-14.6); RDW-SD 43.5 fL; WBC 7.74 10^3/uL (4.4-10.8)
[2021-02-10 14:48] LABS: Prothrombin Time 10.4 sec (9.3-11.0)
[2021-02-10 14:51] LABS: Bilirubin Negative (Negative); Blood Negative (Negative); Clarity Clear (Clear); Glucose Negative (Negative); Ketones Negative (Negative); Leukocyte Esterase Negative (Negative); Nitrite Negative (Negative); Specific Gravity 1.025 (1.005-1.025); Urobilinogen 0.2 EU/dL (Up TO 0.2)
[2021-02-10 14:52] LABS: ALT 33 U/L (14-59); AST 21 U/L (15-37); Alkaline Phosphatase 90 U/L (46-116); Anion Gap 11.6 mmol/L (3-11); BUN 15 mg/dL (7-18); Bilirubin, Total 0.4 mg/dL (0.2-1.0); CO2 25.4 mmol/L (21.0-32.0); CREATININE 0.7 mg/dL (0.55-1.02); Calcium 9.1 mg/dL (8.5-10.1); Calculated LDL 88 mg/dL (<100); Chloride 105 mmol/L (98-107); Cholesterol 192 mg/dL (<200); Glucose 113 mg/dL (74-106); HDL Cholesterol 77 mg/dL (40-60); Sodium 142 mmol/L (136-145); TSH (W/Ref FT4) 0.34 uIU/mL (0.36-3.74); Total Protein 7.2 g/dL (6.4-8.2); Triglyceride 137 mg/dL (<150)
[2021-02-10 14:57] LABS: Hemoglobin A1C 6.1 % (<5.7)
[2021-02-10 15:12] LABS: FREE T4 0.92 ng/dL (0.76-1.46)
[2021-02-10 15:14] LABS: D-Dimer 872 ng/mlFEU (<500)
[2021-02-11 00:36] LABS: COVID-19 RT-PCR UVMMC Result Negative (Negative)
[2021-02-11 00:42] LABS: Vitamin D 25 Total 33.9 ng/mL (30-100)
[2021-02-11 10:06] LABS: Lyme Ab w Rflx to Lyme Confirm Negative (Negative)
[2021-02-12 23:25] LABS: Anaplasma phagocytophilum Negative (Negative); B. miyamotoi PCR Negative (Negative); Babesia divergens/MO-1 Negative (Negative); Babesia duncani Negative (Negative); Babesia microti Negative (Negative); Ehrlichia chaffeensis Negative (Negative); Ehrlichia ewingii/canis Negative (Negative); Ehrlichia muris eauclairensis Negative (Negative)
== END 2021-02-10 10:18 | disposition home or self-care (01) ==
LOC: LBN 10:17
PROVIDERS: PCP Physician Assistant Medical; Visit Provider Nurse Practitioner Family
DX: D47.3 Essential (hemorrhagic) thrombocythemia (principal); E03.9 Hypothyroidism, unspecified; E27.9 Disorder of adrenal gland, unspecified; R73.03 Prediabetes; M17.11 Unilateral primary osteoarthritis, right knee; Z86.711 Personal history of pulmonary embolism; R68.83 Chills (without fever)
CPT/HCPCS: 80053; 80061; 82306; 87798; U0003; 81003; 83036; 84439; 84443; 85025; 85379; 85610; 85730; 86618

== ENCOUNTER 2021-07-20 08:38 | Outpatient (CLI) | payer BC, SELFPAY ==
--- NOTE | 2021-07-20 08:00 | DI.RAD_ITS ---
Exam(s) XR KNEE LT 1V XR STANDING ALIGNMENT EXAM: XR STANDING ALIGNMENT and XR knee LT 1 V CLINICAL HISTORY: L TKA planning. TECHNIQUE: 2D digital imaging was performed. COMPARISON: CR XR KNEE LT 3V AP,LAT,SIENNA from 02/08/2021 CR XR KNEE LT 1V from 07/20/2021 FINDINGS: BONES: No acute fracture is present. No bony destructive lesion is seen. The hips are well maintained with mild degenerative changes present. Moderately severe degenerative changes are seen in the righ t knee with joint space narrowing and periarticular spurring present. The findings are most marked i n the medial femoral tibial joint space. There again seen marked degenerative changes of the left kn ee with joint space narrowing subchondral sclerosis and periarticular spurring. The findings are mos t marked in the patellofemoral joint. The ankles are well maintained. There is no significant leg l ength discrepancy. SOFT TISSUE: Normal. IMPRESSION: Osteoarthritis of the knees bilaterally, left greater than right. DATA REPOSITORY: RADIATION DOSE DELIVERED:
== END 2021-07-20 08:39 | disposition home or self-care (01) ==
LOC: DIORS 08:38
PROVIDERS: PCP Physician Assistant Medical; Referring Provider Physician Assistant Medical; Visit Provider Physician Assistant
DX: M25.562 Pain in left knee; M17.12 Unilateral primary osteoarthritis, left knee
CPT/HCPCS: 73560; 77073

== ENCOUNTER 2021-08-02 01:22 | Outpatient (CLI) | payer BC, SELFPAY ==
[2021-08-02 09:44] LABS: HCT 38.2 % (36.0-46.0); HGB 12.5 g/dL (11.2-15.7); MCH 28.9 pg (27.0-33.0); MCHC 32.7 % (32.0-36.0); MCV 88.4 fL (80-95); Platelet Count 534 10^3/uL (130-400); RBC 4.32 10^6/uL (3.93-5.22); RDW 12.9 % (11.7-14.6); RDW-SD 42.3 fL; WBC 8.06 10^3/uL (4.4-10.8)
[2021-08-02 10:58] LABS: Anion Gap 7.9 mmol/L (3-11); BUN 15 mg/dL (7-18); CO2 28.1 mmol/L (21.0-32.0); CREATININE 0.7 mg/dL (0.55-1.02); Calcium 9.2 mg/dL (8.5-10.1); Chloride 104 mmol/L (98-107); Glucose 110 mg/dL (74-106); Potassium 4.6 mmol/L (3.5-5.1); Sodium 140 mmol/L (136-145)
[2021-08-02 20:12] LABS: COVID-19 PCR Negative (Negative)
[2021-08-02 20:14] LABS: Source Nasal/Nares
== END 2021-08-02 01:23 | disposition home or self-care (01) ==
LOC: LBO 01:22
PROVIDERS: PCP Physician Assistant Medical; Visit Provider Student in an Organized Health Care Education/Training Program
DX: M25.562 Pain in left knee (principal); M17.12 Unilateral primary osteoarthritis, left knee; Z20.822 Contact with and (suspected) exposure to COVID-19; Z01.818 Encounter for other preprocedural examination; Z01.812 Encounter for preprocedural laboratory examination
CPT/HCPCS: 36415; 80048; 85027; 87635

== ENCOUNTER 2021-08-03 07:23 | Observation (INO) | payer BC, SELFPAY ==
[2021-08-03] VITALS (9 sets, daily range): BP systolic 114–146; BP diastolic 62–86; PULSE 56–84; RESP 11–18; TEMP 35.7–37.3; O2SAT 94–99; BMI 37.1
--- NOTE | 2021-08-03 08:08 | W.ANESPRE ---
General Info Date of Service Date Performed: 08/03/21 Height: 5 ft 5 in Weight: 101.2 kg Body Mass Index (BMI): 37.1 Surgical Procedure: Operation Date: 08/03/21 10:10 Proposed Procedure Side Surgeon p (L) Knee Total Arthroplasty Left Harsh [place] MD Meds Allergies and Home Medications Allergies Allergy/AdvReac Type Severity Reaction Status Date / Time Sulfa (Sulfonamide Allergy Severe Hives Verified 08/03/21 07:59 Antibiotics) hydrocodone bitartrate Allergy Mild Itching Verified 08/03/21 07:59 [From Vicodin] methimazole [From Tapazole] Allergy Verified 08/03/21 07:59 prednisone Allergy Itching Verified 08/03/21 07:59 Home Medication Medication Instructions Recorded albuterol sulfate 90 mcg/actuation 6.7 gm INHALATION PRN PRN 03/09/13 aerosol inhaler (Proventil HFA) modafinil 100 mg tablet 100 mg PO PRN PRN 03/06/15 fluticasone propionate 115 2 puff INHALATION BID 05/08/17 mcg-salmeterol 21 mcg/actuation HFA inhaler (Advair HFA) azelastine-fluticasone 137 mcg-50 1 spray SPENSER Q12H 05/07/18 mcg/spray nasal spray multivit with 1 tab PO DAILY 05/07/18 klmdjuhw-bnjr-HH-lutein 8 mg iron-400 mcg-300 mcg tablet (Centrum Silver Women) sertraline 50 mg tablet (Zoloft) 50 mg PO QPM tab 07/01/19 apixaban 5 mg tablet (Eliquis) 5 mg PO BID 02/19/21 cholecalciferol (vitamin D3) 25 25 mcg PO DAILY 07/20/21 mcg (1,000 unit) tablet levothyroxine 25 mcg tablet 12.5 mcg PO DAILY tab 07/20/21 loratadine 10 mg tablet 10 mg PO DAILY 07/20/21 vit C 250 mg-vit E 90 mg-zinc 40 1 tab PO BID 07/20/21 mg-copper 1 [id number] capsule (PreserVision AREDS-2) acetaminophen 500 mg capsule 1,000 mg PO Q8H PRN PRN #90 cap 08/03/21 celecoxib 200 mg capsule (Celebrex) 200 mg PO BID #60 cap 08/03/21 gabapentin 300 mg capsule 300 mg PO QHS #14 cap 08/03/21 oxycodone 5 mg tablet 5 mg PO Q4H PRN #18 tab 08/03/21 pantoprazole 40 mg tablet,delayed 40 mg PO DAILY #30 tab 08/03/21 release (Protonix) Current Visit Medications: Current Medications Generic Name Dose Route Start Last Admin Trade Name Freq PRN Reason Stop Dose Admin Acetaminophen 1,000 mg 08/03/21 06:00 Acetaminophen 500 Mg Tab PO 08/03/21 18:00 PREOP ODILIA Acetaminophen 1,000 mg 08/03/21 12:30 Acetaminophen 500 Mg Tab PO TID ODILIA Aspirin 81 mg 08/03/21 20:00 Aspirin E.C. 81 Mg Tabec PO BID ODILIA Celecoxib 400 mg 08/03/21 06:00 Celecoxib 200 Mg Cap PO 08/03/21 18:00 PREOP ODILIA Celecoxib 200 mg 08/03/21 20:00 Celecoxib 200 Mg Cap PO BID ODILIA Docusate Sodium 100 mg 08/03/21 06:33 Docusate Sodium 100 Mg Cap PO BID PRN PRN Constipation Gabapentin 300 mg 08/03/21 06:00 Gabapentin 300 Mg Cap PO 08/03/21 18:00 PREOP ODILIA Gabapentin 300 mg 08/03/21 22:00 Gabapentin 300 Mg Cap PO HS ODILIA Hydromorphone HCl 0.5 mg 08/03/21 06:33 Hydromorphone 2 Mg/Ml Vial IVP Q2H PRN PRN Tranexamic Acid 1,000 mg/ 60 mls @ 360 mls/hr 08/03/21 06:00 Sodium Chloride IVPB 08/03/21 18:00 PREOP ODILIA Tranexamic Acid 1,000 mg/ 60 mls @ 360 mls/hr 08/03/21 06:00 Sodium Chloride IVPB 08/03/21 18:00 DIRECTED ODILIA Ringer's Solution 1,000 mls @ 80 mls/hr 08/03/21 06:00 IV 09/01/21 23:59 INFUSION ODILIA Cefazolin Sodium/Dextrose 2 gm in 50 mls @ 100 mls/hr 08/03/21 06:00 Ancef Duplex IVPB 09/01/21 23:59 PREOP ODILIA Cefazolin Sodium/Dextrose 1 gm in 50 mls @ 100 mls/hr 08/03/21 16:00 Ancef Duplex IVPB 08/04/21 08:29 Q8H ODILIA IV Miscellaneous Supplies 1 each 08/03/21 06:00 Iv Access IV 09/01/21 23:59 DIRECTED ODILIA Ondansetron HCl 4 mg 08/03/21 06:33 Ondansetron 4 Mg/2 Ml Vial IVP Q6H PRN PRN Nausea Oxycodone HCl 0 mg 08/03/21 06:33 Oxycodone 5 Mg Tab PO Q3H PRN PRN Pain Pantoprazole Sodium 40 mg 08/04/21 07:30 Pantoprazole 40 Mg Tabcr PO DAILY@0730 ODILIA Sodium Chloride 0 ml 08/03/21 06:00 Normal Saline Flush 10 Ml Syr IV 09/01/21 23:59 PRN PRN Sodium Chloride 0 ml 08/03/21 06:00 Normal Saline 10 Ml Vial IJ 09/01/21 23:59 DIRECTED PRN Sterile Water 0 ml 08/03/21 06:00 Water,Injection,Sterile 10 Ml Vial IJ 09/01/21 23:59 DIRECTED PRN PFSH Active Problems Active Problems: Problem Status Onset Code Factor V Leiden D68.51 Seborrheic keratosis L82.1 Neoplasm of unspecified behavior of bone, soft tissue, and skin D49.2 Trigger finger, right middle finger M65.331 De Quervain's tenosynovitis, right M65.4 Primary osteoarthritis of right knee M17.11 Fracture of fifth metatarsal bone of left foot 10/01/18 S92.352A Right ankle sprain S93.401A Osteoarthritis of left knee M17.12 Urticaria 01/13/14 L50.9 Trigger ring finger of right hand 06/17/16 M65.341 Trigger ring finger of left hand 06/17/16 M65.342 Trigger finger, left middle finger 01/25/16 M65.332 Rash and nonspecific skin eruption 01/13/14 R21 Postnasal drip 01/13/14 R09.82 Chronic cough 10/19/15 R05 Bilateral primary osteoarthritis of knee 03/20/17 M17.0 Asthma 02/24/14 J45.909 Allergic rhinitis due to pollen 06/01/15 J30.1 Allergic rhinitis due to other allergen 02/24/14 J30.89 Allergic rhinitis 01/13/14 J30.9 Medical History Medical History Anxiety Asthma Atrophic vaginitis Back pain, chronic Depression History of pulmonary embolus (PE) Hypothyroidism Impaired fasting glucose Obesity Osteoarthritis Surgical History Surgical History Colonoscopy - MAC (05/15/17) H/O arthroscopy of left knee H/O rhinoplasty Tobacco Smoking/Tobacco Use Status: Never Alcohol Alcohol Intake: current Alcohol intake frequency: a few times a week Substance Use Substance use: Never Substance use type: does not use Vital Signs and Lab Results Vital Signs Most Recent Vital Signs in EMR: Most Recent Vital Signs Temp Pulse Resp BP Pulse Ox 36.4 C L 84 18 146/86 H 97 08/03/21 07:34 08/03/21 07:34 08/03/21 07:34 08/03/21 07:34 08/03/21 07:34 Lab Results Blood Type / Crossmatch: No Data to Display Complete Blood Count: White Blood Count 8.06 10^3/uL (4.4-10.8) 08/02/21 09:23 08/02/21 Red Blood Count 4.32 10^6/uL (3.93-5.22) 08/02/21 09:23 08/02/21 Hemoglobin 12.5 g/dL (11.2-15.7) 08/02/21 09:23 08/02/21 Hematocrit 38.2 % (36.0-46.0) 08/02/21 09:23 08/02/21 Platelet Count 534 10^3/uL (130-400) H 08/02/21 09:23 08/02/21 Complete Metabolic Panel: Sodium Level 140 mmol/L (136-145) 08/02/21 09:23 08/02/21 Potassium Level 4.6 mmol/L (3.5-5.1) 08/02/21 09:23 08/02/21 Chloride Level 104 mmol/L (98-107) 08/02/21 09:23 08/02/21 Carbon Dioxide Level 28.1 mmol/L (21.0-32.0) 08/02/21 09:23 08/02/21 Blood Urea Nitrogen 15 mg/dL (7-18) 08/02/21 09:23 08/02/21 Creatinine 0.7 mg/dL (0.55-1.02) 08/02/21 09:23 08/02/21 Estimated GFR/1.73 m2 >= 60.00 (mL/min/1.73m2) 08/02/21 09:23 08/02/21 Calcium Level 9.2 mg/dL (8.5-10.1) 08/02/21 09:23 08/02/21 Glucose Level 110 mg/dL (74-106) H 08/02/21 09:23 08/02/21 Liver Function Panel: No Data to Display Coagulation Panel: No Data to Display Cardiac Panel: No Data to Display Arterial Blood Gas: No Data to Display Venous Blood Gas: No Data to Display Pancreas Panel: No Data to Display Thyroid Panel: No Data to Display Infectious Disease: Coronavirus (COVID-19)(PCR) Negative (Negative) 08/02/21 09:25 08/02/21 Coronavirus 2019 Source Nasal/Nares 08/02/21 09:25 08/02/21 Blood Cultures: No Data to Display Toxicology Panel: No Data to Display Anesthesia Assessment and Plan Anesthesia History Personal History: No History of Anesthesia Complications Family History: No Family History of Anesthesia Complications Exercise Tolerance Exercise Tolerance: Metabolic Equivalents>4 Pertinent Negatives Pertinent Negatives: No Symptoms of GERD Cardiac & Pulmonary Exam Cardiac Exam: Normal S1/S2 Heart Sounds Pulmonary Exam: Clear Bilateral Breath Sounds Implantable Cardiac Device Does patient have a Pacemaker or an ICD?: No Airway Exam Known Difficult Airway: No Mallampati Class: 2 Mouth Opening: Normal (> 3cm) Thyromental Distance: Less than 3 cm Neck Range of Motion: Full ROM Neck Circumference: Normal Teeth Condition: Normal Dentition ASA Classification ASA Score: ASA 3 Emergency Case?: No NPO Status NPO Status: NPO Clears >2 hours, Solids >8 hours Anesthesia Plan Resuscitation Status: Full Code Anesthesia Technique: Spinal Anesthesia Airway Planned: Natural Airway Pain Management: Surgeon and patient request nerve block Monitors Used: Standard Monitors
[2021-08-03] MEDS: Acetaminophen 500 MG TAB 1000 MG PO (08:11)
[2021-08-03] MEDS: Celecoxib 200 MG CAP 400 MG PO (08:12)
[2021-08-03] MEDS: Gabapentin 300 MG CAP PO (08:12)
[2021-08-03] MEDS: Lactated Ringers 1,000 ML 80 ML IV (08:30)
[2021-08-03] MEDS: ceFAZolin 2 GM/50 ML BAG IVPB (08:42)
--- NOTE | 2021-08-03 09:15 | W.ANESNERVE ---
Nerve Block Single Injection Procedure Date and Time Date Performed: 08/03/21 Procedure Start: 08:35 Location Where Procedure Performed Procedure Location: Day Surgery Unit Reason Performed: Postoperative Analgesia Requesting Provider: Harsh Lake Timeout Performed Timeout Performed: Yes Monitoring Used ECG, Blood Pressure, SpO2 and See EMR for corresponding vital signs Sterility Sterility: Hand Hygiene, Surgical Cap, Surgical Mask, Sterile Gloves and Chlorhexidine Sedation Given During Procedure Sedation Given (Indicate Dose Given): Versed IV Dose:: 1mg Patient Mental Status Patient Mental Status: Awake Nerve Block 1st Nerve Block: Laterality: Left Block Type: Adductor Canal Needle / Catheter Used: 100mm SonoPlex II Local Anesthetic Bolus (Indicate Dose Given): Lidocaine used for local infiltration of skin, Injected in 3-5ml increments after negative blood aspiration and Bupivacaine 0.25% Dose:: 20ml Additives (Indicate Dose Given): None Ultrasound: Sterile probe cover and gel used Ultrasound Image Saved?: Yes Nerve Stimulator: Not Used Paresthesia: None Procedure Tolerated: No Complications and Patient tolerated well Procedure Outcome: Successful Performed By: Jagjit Palmer
[2021-08-03] MEDS: Bupivacaine 0.25% Pres-Free 30 ML VIAL (09:19)
[2021-08-03] MEDS: Normal Saline 20 ML VIAL (09:21)
[2021-08-03] MEDS: Ketorolac 30 MG/ML VIAL (09:21)
--- NOTE | 2021-08-03 10:48 | ROE_ITS ---
Date of service: 08/03/21 Time of Service: 10:30 Operative Note Operative Note DATE OF PROCEDURE: 08/03/21 PRE-OP DIAGNOSIS: Left Knee Osteoarthritis POST-OP DIAGNOSIS: same PROCEDURE: Left Total Knee Replacement SURGEON: Harsh Lake RADIO PERFORMER: Nataliya Huerta Refer to Anesthesia Record ESTIMATED BLOOD LOSS: 200 PATHOLOGY: none sent TOURNIQUET TIME: 0 COMPLICATIONS: None Patient was transported to: PACU Patient's condition: stable Implants: 1. Depuy Attune Cementless Cruciate Retaining Femoral Component, Size 6 2. Depuy Attune Cementless Rotating Platform Tibial Component, Size 5 3. Depuy Attune 6x7 CR/RP Poly 4. Depuy Attune Patellar Component, Size 35 Indications: I have seen Zuly in clinic for symptoms of knee arthritis, confirmed with radiographic findings. She has exhausted nonoperative methods and was having significant limitations in daily function and desired better function and less pain. I discussed the technical details of a knee replacement. I explained the risks of the procedure to include, but not limited to, bleeding, infection, pain, stiffness, fracture, damage to nerves and vessels, damage to muscles and tendons, loosening, need for repeat procedure, blood clot and cardiopulmonary demise. Despite these risks, Zuly elected to proceed. Findings: There was significant signs of arthritis throughout the knee. Large osteophytes were present throughout the entire knee. Procedure Description: Zuly was greeted in the preoperative holding area where the correct side was identified and marked. The consent was reviewed with the patient and signed. The history and physical was updated. All questions were answered. Preoperative medications were administered: Acetaminophen 1000mg, Celebrex 400mg, and Gabapentin 300mg. An adductor canal block was then administered by the anesthesia team in the PACU. Zuly was taken back to the operating room. A spinal anesthestic was then administered. The patient was placed into the supine position on the operating room table. A nonsterile tourniquet was placed high onto the leg but only used for cementing. Posts were placed for positioning during the procedure. All bony prominences were well padded. Prophylactic antibiotics in the form of Cefazolin were administered. 1g of Tranxemic Acid was given intravenously within 30 minutes of incision. The left leg was then prepped with Chloraprep and draped in a standard fashion with impervious stockinette. A second prep with Chloraprep was performed prior to application of Iodine impregnated skin protection. A timeout to confirm correct identity, side and site, procedure, allergies, anesthesia, and medical concerns was performed. With the knee in some flexion, a midline incision was made overlying the knee. Full thickness skin flaps were raised once the extensor mechanism was encountered. These were raised medially and laterally. Any bleeding was controlled with electrocautery. Once the extensor mechanism was fully exposed, a medial parapatellar arthrotomy was performed in a flexed position. All bleeding from the arthrotomy and the geniculate arteries was coagulated. A medial subperiosteal peel was performed with electrocautery to the midcoronal plane. The fat pad was removed while keeping the patellar tendon protected. The anterior distal femur synovium was removed for later visualization. The ACL and PCL were resected and the anterior horn of the lateral meniscus was transected. The knee was then flexed with the patella everted. Large osteophytes from the tibia were removed. Large osteophytes from the femur were removed. Using a step drill, and based on preoperative templating, the femoral canal was entered. This was done with a step drill without any difficulty. The intramedullary distal femoral cut guide was inserted, set to a 4 degree valgus cut and 9mm cut thickness. The distal femoral cut guide was then held in position and pinned. With the soft tissues protected, the distal cut was performed. This was passed over a few times to ensure a planar cut. I then turned attention to the tibia. The extramedullary guide was placed onto the leg. The distal aspect was slid medial to adjust for position of center of ankle and stay in line with shaft of the tibia. Approximately 3-5 degrees of posterior slope was kept in the proximal cutting guide. The center of the guide was aligned with the PCL. The stylus was used to assess cut thickness. The medial side was set for a 6mm cut, corresponding to 4mm laterally. This was then held in position and pinned into place with 2 additional pins and a cross pin for stability. The medial and lateral collateral ligaments were protected and the cut was performed. With this completed, it was assessed and noted to be of appropriate dimensions. The guide was removed. A spacer block was inserted and the knee was brought into extension. The 5mm spacer block provided full extension, without hyperextension and with stability of both the medial and lateral collateral ligaments was assessed. The pins from the femur and the tibia were then removed. The distal femur was then sized. The anterior stylus was placed onto the lateral ridge of the anterior femur. This indicated a size 6 femur. The external rotation of the guide was adjusted to 3 degrees to match the epicondylar axis, perpendicular to [place]?s line. The 4-in-1 cutting guide was the placed. The posterior medial femur cut was evaluated and appeared of good thickness. The spacer block was inserted underneath the cutting guide and stability was confirmed in 90 degrees of flexion. An malorie wing was used to confirm appropriate position of the anterior cut to avoid notching. This cutting guide was ensured to be flush on the cut surface and then pinned into place with headed pins. While protecting the soft tissues, quad tendon, and collateral ligaments, the anterior and posterior cuts were performed with a saw. The central two pins were removed and the posterior and anterior chamfers were cut next. The notch-cutting guide was placed. This was pinned to lateralize the femoral component as much as possible while keeping it flush on the cut surface. This was then pinned into position. A reciprocating saw was used to make the notch cut. A rasp smoothed the cut surfaces. The medial and lateral menisci were removed. A trial femoral component was then inserted, impacted down to the cut surfaces, and the lug holes were drilled. A provisional trial tibial component was placed and the knee was brought through range of motion. The polyethylene was trialed until there was good flexion and extension with excellent stability to the medial and lateral collaterals. The patella was tracking without thumbs. A size 7mm polyethylene component provided the best range of motion and stability with less than 2mm gapping with medial and lateral stress and full extension without significant hyperextension. The tibial cut surface was fully exposed. The tibia was then sized as a 5. The tibia had been previously marked during trialing to correspond to the center of the tibial component to help with rotation. The trial was aligned to this nataliya, approximately rotated to the medial 1/3rd of the tibial tubercle. The trial was pinned into place. The tibia was prepared with a reamer and a keel punch and lug holes. The knee was then brought into extension and the patella was measured as 25mm. Using the patellar clamp and cut guide, this was resected to a flat surface with at least 13mm of thickness remaining. The size 35 patella fit the best. This was oriented and then clamped into position. The lugs were drilled. The trial components were removed. The final components were opened on the back table. The periosteal and capsular tissues, especially posteriorly, around the knee were then systematically injected with a periarticular cocktail consisting of 50cc 0.25% Marcaine, 30mg Ketorolac, 20cc of Exparal and 50cc of injectable saline. The knee was thoroughly irrigated with a pulse lavage and dried. Irrisept was also used to irrigate the tissues. On the back table, with the implants opened, the cement was mixed. One batch of high viscosity cement was prepared with vacuum assistance. After the cement was ready a small amount was placed on the cut surface of the patella and the patellar button was clamped into position and held. While the cement was hardening, the cementless knee components were placed. Starting with the tibial component, the tibia was subluxed anteriorly and the lug holes of the component were lined up. The tibia was then impacted with an impactor and mallet until the tibial component was in contact with the tibia. The final polyethylene component was inserted. Then, the femoral component was inserted. The lug holes were aligned and the component was impacted into position. The knee was irrigated with Irrisept chlorhexadine solution. This was allowed to sit in the knee for 3 minutes. After the cement had finally cured, approximately 15min, the clamp was removed from the patella and the knee was taken through range of motion. The patella was tracking with a no-thumbs technique. The capsule was then reapproximated with a No. 1 Vicryl at multiple locations. The capsule was finally closed with a No. 2 Stratafix, barbed suture. The second dosing of 1g TXA was started. Deep tissues were then reapproximated with 0 Vicryl and 2-0 Vicryl. The skin was closed with a running 3-0 Monocryl in a subcuticular fashion. This was reinforced with skin glue. A Mepilex silver dressing was applied along with a [id number]-igfap HCENTE wrap. A CryoCuff was applied. Zuly was transferred to the hospital bed without difficulty an suffering no apparent complication. She has a good prognosis. Physical therapy will start today and without restrictions, weight-bearing as tolerated. She will restart her Eliquis will be used for DVT prophylaxis., take as prescribed.
--- NOTE | 2021-08-03 11:39 | W.ANESPOSTOP ---
Postoperative Evaluation Date, Time and Location Date Performed: 08/03/21 Time Performed: 11:39 Patient Location: PACU Vital Signs Most Recent Imported Vital Signs: Most Recent Vital Signs Temp Pulse Resp BP Pulse Ox 37.3 C 59 L 12 136/64 94 08/03/21 11:10 08/03/21 11:10 08/03/21 11:10 08/03/21 11:10 08/03/21 11:10 Pain Score Most Recent Pain Score: Most Recent Pain Score Pain Level 0 08/03/21 11:10 Assessment Mental Status: Awake (Alert & Oriented to Patient Baseline) Airway and Respiratory Function: Patent airway with normal (patient baseline) respiratory exam Cardiovascular Function: Hemodynamically Stable Hydration Status: Adequately Hydrated Nausea & Vomiting: No Nausea or Vomiting Pain: Pt. Denies Any Pain Peripheral Nerve Block: Regional nerve block not resolved at time of post operative discharge
--- NOTE | 2021-08-03 12:30 | IN_ITS ---
Date of service: 08/03/21 Time of Service: 12:30 PT Notes Visit Reasons: left TKA Physical Therapy Day Surgery Initial Evaluation Date: 08/03/2021 Referring Doctor: LULU Henderson PT Orders: PT CONSULT: Status post Ortho surgery Precautions: WBAT on left LE with AD. Patient Profile/Admitting Diagnosis: Zuly is a 66-year-old female with osteoarthritis of the left knee and is status post left total knee arthroplasty on postoperative day 0. PMHX: Medical History?(Updated 07/20/21 @ 09:15 by LULU Dalton) Anxiety Asthma Atrophic vaginitis Back pain, chronic Depression History of pulmonary embolus (PE) Hypothyroidism Impaired fasting glucose Obesity Osteoarthritis Surgical History?(Updated 07/20/21 @ 09:16 by LULU Dalton) Colonoscopy - MAC (05/15/17) H/O arthroscopy of left knee H/O rhinoplasty Social History/Home Situation: Zuly lives alone in a private home with 3 steps to enter but has friends who can provide support for her as needed. Independent with all aspects of ADLs prior to surgery. 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 Equipment Owned/DME: [employer] Subjective: Agreeable to PT consult. Denies pain in left knee at rest. Only reported of minimal ache after ambulation activity. Denies headache, chest pain, and dizziness throughout session. Reports no falls in the past year. Objective: General Observation: CHENTE wraps to left knee. TEDS to R leg. Mental Status: Alert and oriented x4 Pain: 1/10 after ambulation activity ROM: Right Lower Extremity: Hip flexion WFL. Hip abduction WFL. Knee flexion WFL. Ankle dorsiflexion WFL. Ankle plantarflexion WFL. Left Lower Extremity: Hip flexion WFL. Hip abduction WFL. Knee flexion 10 degrees to 90 degrees. Knee extension -10 degrees Ankle dorsiflexion WFL. Ankle plantarflexion WFL. Strength: Right Lower Extremity: Hip flexors 5/5. Hip abductors 5/5. Knee flexors 5/5. Knee extensors 5/5. Ankle dorsiflexors 5/5. Ankle plantarflexors 5/5. Left Lower Extremity:Hip flexors 4/5. Hip abductors 4/5. Knee flexors 3-/5. Knee extensors 3-/5. Ankle dorsiflexors 5/5. Ankle plantarflexors 5/5. Sensation: Intact as to pain and light pressure in bilateral lower extremities Bed Mobility/Transfers: Supine to sit standby assist Sit to stand contact-guard assist Stand to sit standby assist Bed to chair standby assist Gait: Tolerated level surface ambulation of up to 150 feet using front wheeled walker with step through gait pattern with contact-guard assist only. Reports minimal ache in the left knee after ambulation activity. Stairs: Completed 6 x 4 inch steps and 4 x 6 inch steps while holding onto a r ail and using a crutch on on the other side using step to gait pattern requiring contact-guard assist only. Balance: Static Sitting: Normal Dynamic Sitting: Normal Static Standing: Fair fair Dynamic Standing: Special Tests: Mobility Limitations Standardized Measure [facility]-P[facility] 6 clicks Basic Mobility Inpatient Short Form: Raw Score: 21 CMS Score: 29% deficit Informed Consent/Education: Patient instructed in purpose of PT consult. Education and training on initial set of exercises that can be done at home have been completed with patient. Assessment: He reports the use of front wheel walker for mobility ADL performance to reduce fall risk and maximize independence. Patient presents with clinical signs and symptoms consistent with current/admitting diagnoses that have resulted to mobility limitations, gait instability, generalized weakness, and impairment of motor control as demonstrated by the following impairment level findings: 1. Decreased strength to left knee major muscle groups 2. Impaired standing balance 3. Limitation of joint range of motion in left knee Impairments are contributing to the following functional limitations: 1. Inability to safely ambulate without assistive device 2. Increase completion time for mobility ADL performance 3. Increased fall risk Patient is assessed as a 04021 moderatecomplexity based on the following: History: 66-year-old femalewith impairment level findings, functional limitations, and past medical history as indicated above Examination: Demonstrable impairment in strength, balance, and mobility level with underlying impairments and functional limitations as documented above Presentation: Evolving Decision Makin moderate complexity Goals: N/A. PT evaluation and 1-2 treatment sessions only for functional mobility training using recommended AD and for HEP instruction. Plan of Care/Treatment Plan: N/A. PT evaluation and 1-2 treatment session only for functional mobility training using recommended AD and for HEP instruction. DISCHARGE RECOMMENDATIONS: [] Home with no services [] [] Home with services [specify] [X] Home with outpatient PT. Home when medically cleared by orthopedic surgeon. Will benefit from outpatient PT services in order to facilitate return to independent community ambulation without an assistive device. [] SNF for continued rehabilitation [] [] Medical Technologist Care [] [] SNF versus LTC based on ability to participate and progress [] TREATMENT CODE/TIME: 17451 x 15 minutes, 85983 x 14 minutes beginning at 12:30 PM. Thank you for the opportunity to participate in the care of this patient. Gem Toscano PT, DPT, CLT [facility] [place], [place]
--- NOTE | 2021-08-03 13:30 | W.PM.DSUDISC ---
Discharge Plan Disposition Patient Disposition: HOME Condition: Stable Discharge Details Reason For Visit: left TKA Admit Date/Time: 08/03/21 07:23 Admit Provider: Harsh Lake Attending Provider: Harsh Lake Primary Care Provider: Brenda Hedrick Home Meds and New Rx's Prescriptions: New acetaminophen 500 mg capsule 1,000 mg PO Q8H PRN PRNQty: 90 0RF celecoxib [Celebrex] 200 mg capsule 200 mg PO BID Qty: 60 0RF pantoprazole [Protonix] 40 mg tablet,delayed release (DR/EC) 40 mg PO DAILY Qty: 30 0RF gabapentin 300 mg capsule 300 mg PO QHS Qty: 14 0RF oxycodone 5 mg tablet 5 mg PO Q4H PRNQty: 18 0RF Continued Centrum Silver Women 8 mg iron-400 mcg-300 mcg tablet 1 tab PO DAILY 0RF azelastine-fluticasone 137-50 mcg/spray spray,non-aerosol 1 spray SPENSER Q12H 0RF Eliquis 5 mg tablet 5 mg PO BID 0RF loratadine 10 mg tablet 10 mg PO DAILY 0RF cholecalciferol (vitamin D3) 25 mcg (1,000 unit) tablet 25 mcg PO DAILY 0RF PreserVision AREDS-2 250-90-40-1 mg capsule 1 tab PO BID 0RF albuterol sulfate [Proventil HFA] 6.7 GM HFA aerosol inhaler 6.7 gm Inhalation PRN PRN0RF sertraline [Zoloft] 50 mg tablet 50 mg PO QPM 0RF levothyroxine 25 mcg tablet 12.5 mcg PO DAILY 0RF Label Comments: pt ststes current dose is 12.5mg QOD modafinil 100 MG tablet 100 mg PO PRN PRN0RF Label Comments: 05/16/17 Pt states she no longer takes. PG Advair HFA 60 PUFF HFA aerosol inhaler 2 puff Inhalation BID 0RF Discharge Instructions Additional Instructions: Total Knee Discharge Instructions Activity: The most important activity is to walk. You should try to take short walks a few times a day. It is important that when resting you work on keeping the knee straight. Avoid putting a pillow behind the knee as this will encourage flexion. Work on range of motion exercises as provided by Physical Therapy. If you have the [employer] bike coming, this will be your primary tool for exercise after the knee replacement. You should use it and follow the directions for the knee. Utilize the other exercises sparingly based on your symptoms. Moderate what activities you do to help with pain control. - Start outpatient physical therapy around 2 weeks. - You should wear the LYDIA hose on both legs for 2 weeks. You may remove these at night. You may also use any compression sock in place of the LYDIA hose. - Utilize [employer] to review exercises, see videos on exercises and obtain basic information pertaining to your surgery and your recovery. Dressing: Remove the Jimmie wrap 2 days after your surgery and put on the LYDIA stocking given to you from the hospital. Keep the surgical dressing (underneath the JIMMIE wrap) in place for at least one week. This is a vacuum assisted dressing so there is a small tube and a battery pack attached to it. After the first week it may be removed and replaced with light gauze and tape or nothing. The wound and dressing may get wet after 3 days but avoid soaking the dressing or otherwise it will need to be changed. Many people prefer covering the dressing with cling wrap (saran wrap) to minimize it from getting soaked. If it gets wet, just pat dry. If it starts to peel off then it will need to be changed. If the initial dressing becomes soiled please call the office for instructions. Medications: - You should take Tylenol and anti-inflammatory Celebrex as your primary pain control medications. If the Celebrex is too expensive or not covered, please call the office for another alternative (Advil/Ibuprofen or Naproxen/Aleve) - You have been prescribed a stronger pain medication Oxycodone for breakthrough pain, take as needed as prescribed. - You have also been prescribed a stomach acid reduction agent Pantoprozole to help reduce stomach acid and reflux. - You have been prescribed Gabapentin to take at night for restlessness and nerve pain. - You will be restarting your previously prescribed Eliquis tonight for DVT prevention unless instructed otherwise. - If you have constipation you should take Colace or Miralax (both [id number]). It takes most people 3-4 days to have a bowel movement. Follow-up: 2 weeks If you have any acute concerns or questions, please do not hesitate to contact the office at [phone]. You may contact Dr. Lake with any questions after hours through the hospital at [phone] or on his cell phone at [phone]. Stand Alone Forms: Anesthesia Discharge Inst., Nerve Block Instructions, Odilia Vila ([facility]) Referrals: Harsh Lake MD [ [facility] STAFF PHYSICIAN] - Activity:: Activity as Tolerated Equipment/Supplies:: Walker Diet:: As Tolerated Discharge Orders Discharge Orders: Discharge Order (Routine); Ordered 08/03/21 Ordered By: Harsh Lake DS: Diagnosis Discharge Diagnosis (1) Osteoarthritis of left knee: Status: Acute
== END 2021-08-03 13:46 | disposition home or self-care (01) | DRG 470 ==
PROVIDERS: Admitting Provider Student in an Organized Health Care Education/Training Program; PCP Physician Assistant Medical; Visit Provider Student in an Organized Health Care Education/Training Program
PROC: 0SRD0J9 Replacement of Left Knee Joint with Synthetic Substitute, Cemented, Open Approach (ICD-10-PCS; CPT 27447; principal; 2021-08-03 10:00)
DX: M17.12 Unilateral primary osteoarthritis, left knee (principal); D68.51 Activated protein C resistance; F41.9 Anxiety disorder, unspecified; J45.909 Unspecified asthma, uncomplicated; F32.A Depression, unspecified; Z86.711 Personal history of pulmonary embolism; E03.9 Hypothyroidism, unspecified; E66.9 Obesity, unspecified; Z68.37 Body mass index [BMI] 37.0-37.9, adult; R73.01 Impaired fasting glucose
CPT/HCPCS: 27447; C1776; 76942; 97162; 97530; J0690; J1885; J2250; J2405

== ENCOUNTER 2021-08-16 11:04 | Outpatient (CLI) | payer BC, SELFPAY ==
--- NOTE | 2021-08-16 10:15 | DI.RAD_ITS ---
Exam(s) XR STANDING ALIGNMENT EXAM: XR STANDING ALIGNMENT CLINICAL HISTORY: 1ST POST OP L TKA. TECHNIQUE: 2D digital imaging was performed. Standing AP views were performed from the pelvis throu gh the ankles. COMPARISON: CR XR STANDING ALIGNMENT from 07/20/2021 CR XR KNEE LT 1V from 07/20/2021 FINDINGS: BONES: No acute fracture is present. No bony destructive lesion is seen. JOINTS: Knees: Left total knee prosthesis with satisfactory alignment. No surrounding abnormal lucen cies. Right knee: Joint space narrowing the medial femoral tibial compartment. Periarticular spurri ng throughout. The ankle and hip joints are unremarkable. SOFT TISSUE: Normal. IMPRESSION: Status post left total knee prosthesis. No significant leg length discrepancy. DATA REPOSITORY: RADIATION DOSE DELIVERED:
--- NOTE | 2021-08-16 10:15 | DI.RAD_ITS ---
Exam(s) XR KNEE LT 1V EXAM: XR KNEE LT 1V CLINICAL HISTORY: 1ST POST OP L TKA. TECHNIQUE: 2D digital imaging was performed. COMPARISON: CR XR KNEE LT 1V from 07/20/2021 FINDINGS: Single lateral view was performed. The patient is status post placement of a left knee prosthesis si nce the prior exam. No abnormal bony lucencies. Some residual postsurgical soft tissue swelling rem ains present. DATA REPOSITORY: RADIATION DOSE DELIVERED:
== END 2021-08-16 11:05 | disposition home or self-care (01) ==
LOC: DIORS 11:05
PROVIDERS: PCP Physician Assistant Medical; Referring Provider Physician Assistant Medical; Visit Provider Student in an Organized Health Care Education/Training Program
DX: Z96.652 Presence of left artificial knee joint (principal); Z47.1 Aftercare following joint replacement surgery; M79.89 Other specified soft tissue disorders
CPT/HCPCS: 73560; 77073

== ENCOUNTER 2021-10-04 09:56 | Outpatient (REF) | payer BC, SELFPAY ==
[2021-10-04 13:59] LABS: TSH 0.03 uIU/mL (0.36-3.74)
== END 2021-10-04 09:57 | disposition home or self-care (01) ==
LOC: NCHCN 09:56
PROVIDERS: PCP Physician Assistant Medical; Visit Provider Physician Assistant Medical
DX: R73.03 Prediabetes (principal); E03.9 Hypothyroidism, unspecified
CPT/HCPCS: 83036; 84443

== ENCOUNTER 2021-10-27 00:21 | Outpatient (CLI) | payer BC, SELFPAY | END 2021-10-27 00:41 | PROVIDERS: PCP Physician Assistant Medical; Visit Provider Physician Assistant Medical | DX: Z12.31 Encounter for screening mammogram for malignant neoplasm of breast (principal) | CPT/HCPCS: 77063; 77067 ==

== ENCOUNTER → 2021-11-01 02:26 | Outpatient (CLI) | payer BC, SELFPAY ==
--- NOTE | 2021-11-01 15:55 | DI.MAMMO_ITS ---
Exam(s) MAMMO SCREENING EXAM: MAMMO SCREENING CLINICAL HISTORY: SCREENING, Z12.31 TECHNIQUE: Bilateral full field digital CC and MLO mammographic images were obtained with 3D tomosyn thesis and utilizing computer aided detection (CAD). COMPARISON: Available for comparison. FINDINGS: This examination includes the left CC view which was performed on 10/27/2021. The exam cannot be comp leted at that time and res rescheduled for 11/01/2021. The entire exam was interpreted and dictated o n 11/01/2021. Masses/Architectural Distortion: The well-circumscribed nodule in the outer left breast is stable. T his was previously shown to be a cyst on ultrasound. No suspicious nodules or architectural distorti on is seen. Microcalcifications: No suspicious pleomorphic-type are seen. Skin Thickening/Nipple Retraction: None. IMPRESSION: 1. No significant interval change with no specific features of malignancy noted. 2. Unless there is more urgent need, screening mammography is recommended, as per [place] [employer] guidelines. BI-RADS Category 2 - Benign Findings Breast Density - Category B - Scattered areas of fibroglandular density Breast density category C or D implies that the patient has dense breast tissue. Dense breast tissue is very common and is not abnormal but dense breast tissue can make it harder to find cancer on a ma mmogram. Also, dense breast tissue may increase their breast cancer risk. This information about the result of the mammogram report was provided to the patient to raise their awareness. Use this report when you speak with the patient about their risks for breast cancer, which includes their family hist ory. At that time, you may recommend for more screening tests (Ultrasound or MRI) as they might be us eful based on their risk. A negative radiographic report should not delay biopsy if a dominant or clinically suspicious mass is present. Up to ten percent of cancers are not identified on mammography. A negative report may reinforce clinical impression. Adenosis and dense breasts may obscure an underlying neoplasm. False positive reports average 6 to 10%. Patient will receive a letter notifying them of these results.
== END ==
PROVIDERS: PCP Physician Assistant Medical; Visit Provider Physician Assistant Medical
DX: Z12.31 Encounter for screening mammogram for malignant neoplasm of breast (principal); N60.02 Solitary cyst of left breast
CPT/HCPCS: 77063; 77067

== ENCOUNTER 2021-12-06 10:15 | Outpatient (REF) | payer BC, MEDICARE, SELFPAY ==
[2021-12-06 16:32] LABS: TSH 0.34 uIU/mL (0.36-3.74)
== END 2021-12-06 10:16 | disposition home or self-care (01) ==
LOC: NCHCN 10:15
PROVIDERS: PCP Physician Assistant Medical; Visit Provider Physician Assistant Medical
DX: E03.9 Hypothyroidism, unspecified (principal)
CPT/HCPCS: 84443

== ENCOUNTER 2022-06-24 16:54 | Outpatient (REF) | payer MEDICARE, SELFPAY ==
--- OUTSIDE RECORDS SUMMARY | 2022-06-24 16:56 | XMS_ITS ---
:1955 Author Organization [facility] Address [address], [place] [id number] Care Team Providers Name Role Phone Juan Alberto Hernandez Unavailable Unavailable PROBLEMS Type Condition ICD9-CM XOT25-TO Onset Condition SNOMED Cod e Code Code Dates Status Problem Asthma J45.909 Active 931899399 Problem Rash and other R21 Active 39672 7003 nonspecific skin eruption Problem Urticaria L50.9 Active 378612569 Problem Chronic cough R05 Active 943849 08 Problem Allergic rhinitis 477.0 Active 21 746452 due to pollen Problem Chronic fatigue R53.82 Active 5270 2003 Problem Seborrheic L82.1 Active 25014296 keratosis Problem Allergic rhinitis J30.9 Active 61 650736 due to allergen Problem Allergic rhinitis J30.1 Active 21 070556 due to pollen Problem Postnasal drip R09.82 Active 41512 007 Problem 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 8713158 07 hypothyroidism Problem History of Graves' Z86.39 Active 1 [id number] disease Problem Sun-damaged skin L57.8 Active 439 64752 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 40921752 9 unspecified behavior of bone, soft tissue, and skin ALLERGIES Substance Reaction Event Type Date Status Tapazole rash Drug Allergy Jun, Active Doxycycline Calcium rash Drug Allergy Jun, Active Cyclobenzaprine HCl Unknown Drug Allergy Jun, Active sulfa hives Drug Allergy Jun, Active Vicodin rash Drug Allergy Jun, Active ENCOUNTERS Encounter Location Date Diagnosis N [address], Apr, Allerg ic rhinitis due to [facility] [address] po [address] J30.1 [facility] [id number] [address], Mar, Allerg ic rhinitis due to [facility] [address] po [address] J30.1 [facility] [id number] [address], Feb, Allerg ic rhinitis due to [facility] [address] po [address] J30.1 [place], [place] [id number] [address], Jan, Allerg ic rhinitis due to [facility] [address] po [address] J30.1 [facility] [id number] [address], Jan, Allerg ic rhinitis due to [facility] [address] po [address] J30.1 [facility] [id number] [address], Jan, [facility] [address] [facility] [id number] [address], Nov, [facility] [address] [place] [id number] [address], October, Allerg ic rhinitis due to [facility] [address] po [address] J30.1 [place] [id number] [address], October, Allerg ic rhinitis due to [facility] [address] po [address] J30.1 [facility] [id number] [address], Sep, Allerg ic rhinitis due to [facility] [address] po [address] J30.1 [place] [id number] [address], Sep, Allerg ic rhinitis due to [facility] [address] po [address] J30.1 [place] [id number] [address], Aug, Allerg ic rhinitis due to [facility] [address] po [address] J30.1 [place] [id number] [address], Jun, Allerg ic rhinitis due to [facility] [address] po [address] J30.1 [place] [id number] [address], Jun, Allerg ic rhinitis due to [facility] [address] po [address] J30.1 [place] [address] [address], Jun, Allerg ic rhinitis due to [facility] [address] po l[address] J30.1 [facility] [address] [address] May, Allergic r hinitis due to Otolaryngology [address] [place], [facility] J30.1 [place] [id number] [address], May, Allerg ic rhinitis due to [facility] [address] po [address] J30.1 [place] [id number] [address], Apr, Allerg ic rhinitis due to [facility] [address] po [address] J30.1 [place] 669[address] [address], Mar, Allerg ic rhinitis due to [facility] [address] po [address] J30.1 [facility] 881587883 [address], Mar, Allerg ic rhinitis due to [facility] [address] po [address] J30.1 [facility] 9689[address]473 [address], Mar, Allerg ic rhinitis due to [facility] [address] po [address] J30.1 [facility] [id number] [address], Feb, Allerg ic rhinitis due to [facility] [address] po [address] J30.1 [facility] 321589340 [address], Dec, Allerg ic rhinitis due to [facility] [address] po [address] J30.1 [facility] [id number] [address], Dec, Allerg ic rhinitis due to [facility] [address] po l[address] J30.1 [facility] [id number] [address], Dec, Allerg ic rhinitis due to [facility] [address] po l[address] J30.1 [facility] 026[address]1676 [address], Nov, Allerg ic rhinitis due to [facility] [address] po [address] J30.1 [facility] 463897466 [address], Nov, Allerg ic rhinitis due to [facility] [address] po l[address] J30.1 [facility] 913259803 [address], Nov, Allerg ic rhinitis due to [facility] [address] po l[address] J30.1 [facility] 064444410 [address], October, Allerg ic rhinitis due to [facility] [address] po [address] J30.1 [facility] 3431120[address] [address], October, Allerg ic rhinitis due to [facility] [address] po l[address] J30.1 [facility] [id number] [address], Sep, Allerg ic rhinitis due to [facility] [address] po l[address] J30.1 [facility] 773556881 [address], Sep, Allerg ic rhinitis due to [facility] [address] po [address] J30.1 [facility] 588751529 [address], Aug, Allerg ic rhinitis due to [facility] [address] po [address] J30.1 [facility] 739164423 [address], Aug, Allerg ic rhinitis due to [facility] [address] po [address] J30.1 [facility] 9554536[address] [address], Jul, Allerg ic rhinitis due to [facility] [address] po l[address] J30.1 [facility] 372187748 [address], Jul, Allerg ic rhinitis due to [facility] [address] po l[address] J30.1 [facility] 427942835 [address], Jul, Allerg ic rhinitis due to [facility] [address] po l[address] J30.1 [facility] 580820574 [address], Jun, Allerg ic rhinitis due to [facility] [address] po [address] J30.1 [facility] 756571958 [address], May, Allerg ic rhinitis due to [facility] [address] po llen J30.1 [facility] 772576039 [address], May, Allerg ic rhinitis due to [facility] [address] po [address] J30.1 [place] 8507[address] [address], Apr, Allerg ic rhinitis due to [facility] [address] po l[address] J30.1 [place], [place] 7268[address] [address], Apr, Seborr heic keratosis [facility] [address] L8 2.1 ; Neoplasm of [place] unspecified behavior of 252175325 bone, soft tissu e, and skin D49.2 and Sun-damaged skin L57.[address], Apr, Allerg ic rhinitis due to [facility] [address] po l[address] J30.1 [place] [id number] [address], Apr, Allerg ic rhinitis due to [facility] [address] po llen J30.1 [place], [place] 348338746 [address], Mar, Allerg ic rhinitis due to [facility] [address] po llen J30.1 [place] 026295843 [address], Mar, Allerg ic rhinitis due to [facility] [address] po llen J30.1 [place] 833[address]3047 [address], Mar, Allerg ic rhinitis due to [facility] [address] po llen J30.1 [place], [place] [address] [address], Mar, Neopla sm of unspecified [facility] [address] be havior of bone, soft [facility] tissue, and skin D49.[id number], Feb, Allerg ic rhinitis due to [facility] [address] po llen J30.1 [facility] 574340251 [address], Feb, Allerg ic rhinitis due to [facility] [address] po llen J30.1 [facility] 863506883 [address], Jan, Allerg ic rhinitis due to [facility] [address] po llen J30.1 [facility] 3203[address]159 [address], Jan, Allerg ic rhinitis due to [facility] [address] po llen J30.1 [facility] 918999262 [address], Jan, Allerg ic rhinitis due to [facility] [address] po llen J30.1 [facility] 648548631 [address], Jan, Allerg ic rhinitis due to [facility] [address] po llen J30.1 [facility] 199832100 [address], Jan, Allerg ic rhinitis due to [facility] [address] po llen J30.1 [facility] 838029855 [address], Dec, Allerg ic rhinitis due to [facility] [address] po llen J30.1 [facility] 075140303 [address], Dec, Allerg ic rhinitis due to [facility] [address] po llen J30.1 [facility] 688596780 [address], Dec, Allerg ic rhinitis due to [facility] [address] po l[address] J30.1 [facility] 7946[address]752 [address], Dec, Allerg ic rhinitis due to [facility] [address] po llen J30.1 [place] [address]64330288 [address], Nov, [facility] [address] [facility] [id number] [address] Sep, Neoplasm o f unspecified Otolaryngology [address] [place], behavior of bone, soft [place] [address] tissue, and skin D49.2 ; History of Grave s' disease Z86.39 ; Allergic rhinitis due to allergen J30.9 and Sun-da enriqueta skin L57.[address], Aug, Allerg ic rhinitis due to [facility] [address] po llen J30.1 [place] 726258503 [address], Aug, Allerg ic rhinitis due to [facility] [address] po llen J30.1 [place] 065399223 [address], Jul, Allerg ic rhinitis due to [facility] [address] po llen J30.1 [facility] [id number] [address], Jun, Allerg ic rhinitis due to [facility] [address] po llen J30.1 [place] 471230030 [address], May, Allerg ic rhinitis due to [facility] [address] po llen J30.1 [place] 844873867 [address], Apr, Allerg ic rhinitis due to [facility] [address] po llen J30.1 [facility] 407813438 [address], Mar, Allerg ic rhinitis due to [facility] [address] po llen J30.1 [facility] 800722916 [address], Mar, Allerg ic rhinitis due to [facility] [address] po llen J30.1 [facility] 890900635 [address], Feb, Allerg ic rhinitis due to [facility] [address] po llen J30.1 [facility] 634306830 [address], Feb, Allerg ic rhinitis due to [facility] [address] po llen J30.1 [facility] 035621753 [address], Feb, Allerg ic rhinitis due to [facility] [address] po llen J30.1 [facility] 565223172 [address], Jan, Allerg ic rhinitis due to [facility] [address] po llen J30.1 [facility] 436258110 [address], Jan, Allerg ic rhinitis due to [facility] [address] po llen J30.1 [facility] 875628884 [address], Dec, Allerg ic rhinitis due to [facility] [address] po llen J30.1 [facility] 0550[address] [place] [address], Dec, Allerg ic rhinitis due to [facility] [address] po llen J30.1 [facility] [id number] [address], Dec, Allerg ic rhinitis due to [facility] [address] po llen J30.1 [facility] 260489589 [address], Nov, Allerg ic rhinitis due to [facility] [address] po llen J30.1 [facility], [place] 257221914 [address], Nov, Allerg ic rhinitis due to [facility] [address] po llen J30.1 [facility] 269475535 [address], October, Allerg ic rhinitis due to [facility] [address] po llen J30.1 [facility] 857655054 [address], October, Allerg ic rhinitis due to [facility] [address] po llen J30.1 [facility] 773241597 [address], Sep, Allerg ic rhinitis due to [facility] [address] po llen J30.1 [facility] [id number] [address], Aug, Allerg ic rhinitis due to [facility] [address] po llen J30.1 [facility] 826933187 [address], Aug, Allerg ic rhinitis due to [facility] [address] po llen J30.1 [facility] 170216376 [address], Aug, Allerg ic rhinitis due to [facility] [address] po llen J30.1 [facility] 809313681 [address], Jun, Allerg ic rhinitis due to [facility] [address] po llen J30.1 [facility] 032394459 [address], Jun, Allerg ic rhinitis due to [facility] [address] po l[address] J30.1 [facility] 821017360 [address], May, Allerg ic rhinitis due to [facility] [address] po llen J30.1 [place] 020274182 [address], May, Allerg ic rhinitis due to [facility] [address] po llen J30.1 [place], [place] 978036267 [address], Apr, Allerg ic rhinitis due to [facility] [address] po llen J30.1 [place], [place] 931610104 [address], Apr, Histor y of [facility] [address] di sease Z86.39 and [place] Impaired fas [facility] [id number] R73.[address], Apr, Allerg ic rhinitis due to [facility] [address] po llen J30.1 [place], [place] 563937789 [address], Mar, Allerg ic rhinitis due to [facility] [address] po llen J30.1 [place], [place] 426540117 [address], Mar, Allerg ic rhinitis due to [facility] [address] po llen J30.1 [place], [place] 874401179 [address], Feb, Allerg ic rhinitis due to [facility] [address] po llen J30.1 [place] 179042968 [address], Feb, Allerg ic rhinitis due to [facility] [address] po llen J30.1 [place] 799242262 [address], Feb, Allerg ic rhinitis due to [facility] [address] po llen J30.1 [facility] 875353551 [address], Jan, [facility] [address] [facility], [place] 695950946 [address], Jan, Allerg ic rhinitis due to [facility] [address] po llen J30.1 [place] 721445756 [address], Dec, Allerg ic rhinitis due to [facility] [address] po llen J30.1 [place] 945425796 [address], Dec, Allerg ic rhinitis due to [facility] [address] po llen J30.1 [place] 200028158 [address], Dec, Allerg ic rhinitis due to [facility] [address] po llen J30.1 [place], [place] 482724688 [address], Nov, Allerg ic rhinitis due to [facility] [address] po llen J30.1 [place], [place] 170829246 [address], October, Allerg ic rhinitis due to [facility] [address] po llen J30.1 [facility] 506865152 [address], October, Allerg ic rhinitis due to [facility] [address] po llen J30.1 [facility] 184499423 [address], October, [facility] [address] [facility] [id number] [address], Sep, Allerg ic rhinitis due to [facility] [address] po llen J30.1 [facility] 918176909 [address], Sep, Allerg ic rhinitis due to [facility] [address] po llen J30.1 [facility] 079938556 [address], Aug, Allerg ic rhinitis due to [facility] [address] po llen J30.1 [facility] 404632624 [address], Aug, Allerg ic rhinitis due to [facility] [address] po llen J30.1 [facility] 459051061 [address], Aug, Allerg ic rhinitis due to [facility] [address] po llen J30.1 [facility] 051142497 [address], Jul, Allerg ic rhinitis due to [facility] [address] po llen J30.1 [facility] 756518058 [address], Jun, Allerg ic rhinitis due to [facility] [address] po llen J30.1 [facility] 968668207 [address], Jun, Allerg ic rhinitis due to [facility] [address] po llen J30.1 [facility] 395104229 [address], May, Allerg ic rhinitis due to [facility] [address] po llen J30.1 [facility] 378515466 [address], Apr, Allerg ic rhinitis due to [facility] [address] po llen J30.1 [facility] 847207459 [address], Apr, Allerg ic rhinitis due to [facility] [address] po llen J30.1 [facility] 210688995 [address], Mar, Allerg ic rhinitis due to [facility] [address] po llen J30.1 [facility] 311858600 [address], Mar, Allerg ic rhinitis due to [facility] [address] po llen J30.1 [facility] 783425228 [address], Feb, Allerg ic rhinitis due to [facility] [address] po llen J30.1 [facility] 914325263 [address], Feb, Allerg ic rhinitis due to [facility] [address] po llen J30.1 [facility] 289656448 [address], Jan, Allerg ic rhinitis due to [facility] [address] po llen J30.1 [facility], [place] 410688314 [address], Jan, Allerg ic rhinitis due to [facility] [address] po llen J30.1 [facility] 744895251 [address], Jan, Allerg ic rhinitis due to [facility] [address] po llen J30.1 [facility] 532355856 [address], Dec, Allerg ic rhinitis due to [facility] [address] po llen J30.1 [facility] 997686851 [address], Dec, Allerg ic rhinitis due to [facility] [address] po llen J30.1 [facility] 708101986 [address], Dec, Allerg ic rhinitis due to [facility] [address] po llen J30.1 [facility] 134458666 [address], Nov, Allerg ic rhinitis due to [facility] [address] po llen J30.1 [facility] 247605445 [address], October, Allerg ic rhinitis due to [facility] [address] po llen J30.1 [facility] 970757002 [address], October, Allerg ic rhinitis due to [facility] [address] po llen J30.1 [facility] 127583250 [address], Sep, Allerg ic rhinitis due to [facility] [address] po llen J30.1 [facility] 681190304 [address], Sep, Allerg ic rhinitis due to [facility] [address] po llen J30.1 [facility] 885944964 [address], Aug, Allerg ic rhinitis due to [facility] [address] po llen J30.1 [facility] 170261669 [address], Jul, Allerg ic rhinitis due to [facility] [address] po llen J30.1 [facility] 889199096 [place] [address], Jul, Allerg ic rhinitis due to [facility] [address] po llen J30.1 [facility] [id number] [address] Jul, [place], [place] [id number] [place] [address], Jun, Allerg ic rhinitis due to [facility] [address] po llen J30.1 [facility] 562174432 [address] Jun, [place], [place] 182659550 [address], May, Allerg ic rhinitis due to [facility] [address] po llen J30.1 [facility], [place] 434135555 [address], May, Allerg ic rhinitis due to [facility] at [facility] 5 [address] po llen J30.1 [facility] 935316943 [address], Apr, Allerg ic rhinitis due to [facility] 5 [address] po llen J30.1 [facility] 458152352 [address] Apr, Post[place], [place] hypothyroidis m E89.0 ; [id number] History of Grave s' disease Z86.39 ; Impaired fasting glucose R73.01 and Chronic fati rosalina R53.82 [address] [address], Mar, Allerg ic rhinitis due to [facility] [address] po l[address] J30.1 [facility], [place] [id number] [address], Mar, Allerg ic rhinitis due to [facility] [address] po llen J30.1 [facility], [place] [id number] [address] Mar, Postab [place], [place] hypothyroidis m E89.0 ; [id number] History of Grave s' disease Z86.39 ; Impaired fasting glucose R73.01 and Chronic fati rosalina R53.82 [facility] [address] [place] [address] Feb, [facility] [address] [place] [id number], Feb, Allerg ic rhinitis due to [facility] [address] po llen J30.1 [facility] [id number] [address], Feb, Allerg ic rhinitis due to [facility] [address] po [address] J30.1 [place], [place] [id number] [address], Jan, Allerg ic rhinitis due to [facility] [address] po l[address] J30.1 [place], [place] [id number] [address], Jan, Allerg ic rhinitis due to [facility] [address] po [address] J30.1 [place], [place] [id number] [address], Jan, Postna luther drip R09.82 and [facility] [address] Al lergic rhinitis due to [facility], [place] pollen 477.[id number], Jan, Allerg ic rhinitis due to [facility] [address] po llen J30.1 [place], [place] [id number] [address], Jan, Allerg ic rhinitis due to [facility] [address] po l[address] J30.1 [place] [id number] [address], Dec, Allerg ic rhinitis due to [facility] [address] po l[address] J30.1 [place] [id number] [address], Dec, Allerg ic rhinitis due to [facility] [address] po l[address] J30.1 [place] [id number] [address], Dec, Allerg ic rhinitis due to [facility] [address] po l[address] J30.1 [place], [place] [id number] [address], Dec, Allerg ic rhinitis due to [facility] [address] po [address] J30.1 [place] [id number] [address], Nov, Allerg ic rhinitis due to [facility] [address] po [address] J30.1 [place] [id number] [address], Nov, Allerg ic rhinitis due to [facility] [address] po [address] J30.1 [place] [id number] [address], Nov, Allerg ic rhinitis due to [facility] [address] po [address] J30.1 [place] [id number] [address], October, Allerg ic rhinitis due to [facility] [address] J30.1 [place] [id number] [address], October, Allerg ic rhinitis due to [facility] [address] po l[address] J30.1 [place], [place] [id number] [address], October, Postna luther drip R09.82 ; [facility] [address] Al lergic rhinitis due to [place] pollen 477.0 and Chronic [id number] cough R05 N [address], October, Allerg ic rhinitis due to [facility] [address] J30.1 [place] [id number] [address], Sep, Allerg ic rhinitis due to [facility] [address] po [address] J30.1 [place] [id number] [address], Aug, Allerg ic rhinitis due to [facility] [address] po [address] J30.1 [place] [id number] [address], Aug, Allerg ic rhinitis due to [facility] [address] po [address] J30.1 [place], [place] [id number] [address], Aug, Allerg ic rhinitis due to [facility] [address] po [address] J30.1 [place] [id number] [address], Jul, Allerg ic rhinitis due to [facility] [address] po [address] J30.1 [place], [place] [id number] [address], Jul, Allerg ic rhinitis due to [facility] [address] J30.1 [place] [id number] [address], Jun, Allerg ic rhinitis due to [facility] [address] po [address] J30.1 [place] [id number] [address], Jun, Postna luther drip R09.82 and [facility] [address] Al lergic rhinitis due to [facility] pollen J30.[id number], Jun, Allerg ic rhinitis due to [facility] [address] po [address] J30.1 [place] [id number] [address], May, Allerg ic rhinitis due to [facility] [address] al lergen J30.9 [place] [id number] [address], May, Allerg ic rhinitis due to [facility] [address] J30.1 [place] [id number] [address], May, Allerg ic rhinitis due to [facility] [address] po [address] J30.1 and Allergic [place] rhinitis due to allergen [id number] J30.[address], May, Allerg ic rhinitis due to [facility] [address] J30.1 [place] [id number] [address], May, Allerg ic rhinitis due to [facility] [address] J30.1 [place] [id number] [address], Apr, Allerg ic rhinitis due to [facility] [address] lergen J30.9 [place] [id number] [address], Apr, Allerg ic rhinitis due to [facility] [address] al lergen J30.9 [place] [id number] [address], Apr, Allerg ic rhinitis due to [facility] [address] lergen J30.9 [place] [id number] [address], Apr, Allerg ic rhinitis due to [facility] [address] lergen J30.9 [place] [id number] [address], Apr, Allerg ic rhinitis due to [facility] [address] lergen J30.9 [place] [id number] [address], Mar, Allerg ic rhinitis due to [facility] [address] lergen J30.9 [place] [id number] [address], Feb, Allerg ic rhinitis due to [facility] [address] lergen 477.8 [place], [place] [id number] [address], Feb, Allerg ic rhinitis due to [facility] [address] al lergen 477.8 [place], [place] [id number] [address], Feb, Allerg ic rhinitis due to [facility] [address] al lergen 477.8 [place] [id number] [address], Jan, Allerg ic rhinitis due to [facility] [address] al lergen 477.8 [place] [id number] [address], Jan, Allerg ic rhinitis due to [facility] [address] al lergen 477.8 [place] [id number] [address] Jan, Otolaryngology [address] [place] [id number] [place] [address] Jan, Allergic r hinitis due to [facility] [address] [place], allergen 477 .8 ; [place] [id number] RHINITIS NOS 477 .9 ; Asthma 493.90 an d Postnasal drip [address], Dec, ALLERG IC RHINITIS NOS [facility] [address] 47 7.9 [place] [id number] [address], Dec, Allerg ic rhinitis due to [facility] [address] al lergen 477.8 [place], [place] [id number] [address], Dec, Allerg ic rhinitis due to [facility] [address] al lergen 477.8 [place] [id number] [address], Dec, Allerg ic rhinitis due to [facility] [address] al lergen 477.8 [place] [id number] [address] Nov, Allergic r hinitis due to [facility] [address] [place], allergen 477 .8 [place] [id number] [place] [address], Nov, Allerg ic rhinitis due to [facility] [address] al lergen 477.8 [facility] [id number] [address], Nov, Allerg ic rhinitis due to [facility] [address] al lergen 477.8 [facility], [place] [id number] [address] Nov, Otolaryngology [address] [place], [place] [id number] [address], Nov, Allerg ic rhinitis due to [facility] [address] al lergen 477.8 [facility], [place] [id number] [address], October, Allerg ic rhinitis due to [facility] [address] al lergen 477.8 [place] [id number] [address], October, Allerg ic rhinitis due to [facility] [address] al lergen 477.8 [facility] [id number] [address], Sep, Allerg ic rhinitis due to [facility] [address] al lergen 477.8 [facility], [place] [id number] [address], Sep, Allerg ic rhinitis due to [facility] [address] al lergen 477.8 [place] [id number] [place] [address], Aug, Allerg ic rhinitis due to [facility] [address] al lergen 477.8 [facility] [id number] [address], Aug, Allerg ic rhinitis due to [facility] [address] al lergen 477.8 [facility] [id number] [address], Aug, Allerg ic rhinitis due to [facility] [address] lergen 477.8 [place] [id number] [address], Aug, ALLERG IC RHINITIS NOS [facility] 5 [address] 47 7.9 ; Asthma 493.90 ; [place] Urticaria 70 8.9 and [id number] Postnasal drip [address], Jul, ALLERG IC RHINITIS NEC [facility] 5 [address] 47 7.8 [place] [id number] [address], Jul, Allerg ic rhinitis due to [facility] [address] al lergen 477.8 [place] [id number] [address], Jul, Allerg ic rhinitis due to [facility] [address] lergen 477.8 [place] [id number] [address], Jul, Allerg ic rhinitis due to [facility] [address] lergen 477.8 [place] [id number] [address], Jun, Allerg ic rhinitis due to [facility] [address] lergen 477.8 [place] [id number] [address], Jun, Allerg ic rhinitis due to [facility] [address] lergen 477.8 [place] [id number] [address], Jun, Allerg ic rhinitis due to [facility] [address] al lergen 477.8 [place] [id number] [address], May, Allerg ic rhinitis due to [facility] [address] al lergen 477.8 [place] [id number] [address], May, Allerg ic rhinitis due to [facility] [address] al lergen 477.8 [place], [place] [id number] [address], May, Allerg ic rhinitis due to [facility] [address] lergen 477.8 [place], [place] [id number] [address], May, Allerg ic rhinitis due to [facility] [address] lergen 477.8 [place] [id number] [address], May, ALLERG IC RHINITIS NOS [facility] [address] 47 7.9 and Postnasal drip [facility], [place] 784.[id number], May, [facility] [address] [place] [id number] [address], Apr, Allerg ic rhinitis due to [facility] [address] al lergen 477.8 [place], [place] [id number] [address] Apr, ALLERGIC R HINITIS NEC [facility] [address] [place] [address]16[address].8 [place] [id number] [address], Apr, Allerg ic rhinitis due to [facility] [address] lergen 477.8 [place], [place] [id number] [address], Apr, Allerg ic rhinitis due to [facility] [address] lergen 477.8 [place] [id number] [address], Apr, Allerg ic rhinitis due to [facility] [address] al lergen 477.8 [place] [id number] [address], Mar, Allerg ic rhinitis due to [facility] [address] lergen 477.8 [place], [place] [id number] [address], Mar, Allerg ic rhinitis due to [facility] [address] lergen 477.8 [place], [place] [id number] [address], Mar, Allerg ic rhinitis due to [facility] [address] lergen 477.8 [place] [id number] [address], Mar, Allerg ic rhinitis due to [facility] [address] lergen 477.8 [place], [place] [id number] [address], Feb, Allerg ic rhinitis due to [facility] [address] lergen 477.8 [place] [id number] [address], Feb, ALLERG IC RHINITIS NOS [facility] 5 [address] 47 7.9 [place] [id number] [address] Feb, ALLERGIC R HINITIS [facility] Otolaryngology [address] [place] [id number] [place] [address] Feb, Otolaryngology [address] [place], [place] [id number] [address], Feb, Allerg ic rhinitis due to [facility] [address] al lergen 477.8 and Asthma [facility], [place] [address] [id number], Dec, [facility] [address] [place] [id number] [address], Dec, Urtica geoff 708.9 ; [facility] [address] AL LERGIC RHINITIS NOS [place] 477.9 ; Post nasal drip [id number] 784.91 and Rash and nonspecific skin eruption 782.1 IMMUNIZATIONS No Known Immunizations SOCIAL HISTORY Never Assessed REASON FOR REFERRAL FUNCTIONAL STATUS PLAN OF CARE Activity Details Follow Up 1 Week Reason: VITAL SIGNS Height 5 ft 4 in in 2020-05-18 Height 64.5 in 2020-03-23 Height 64.5 in 2019-09-30 Height 64.5 in 2016-04-28 Height 64.5 in 2016-04-04 Height 64.5 in 2016-01-25 Height 64.5 in 2015-10-19 Height 64.5 in 2015-07-06 Height 64.5 in 2015-01-28 Height 64.5 in 2014-08-18 Height 64.5 in 2014-05-19 Height 64.5 in 2014-01-13 Weight 226 lbs 2020-05-18 Weight 227 lbs 2020-03-23 Weight 225 lbs 2019-09-30 Weight 215 lbs 2016-04-28 Weight 215.6 lbs 2016-04-04 Weight 217.7 lbs 2016-01-25 Weight 220 lbs 2015-10-19 Weight 216 lbs 2015-01-28 Weight 215 lbs 2014-08-18 Weight 214 lbs 2014-05-19 Weight 218 lbs 2014-01-13 Temperature Tympanic:97.6 degrees Fahrenheit 2015-06 Heart Rate 76 /min 2016-04-28 Heart Rate 81 /min 2016-04-04 Heart Rate 80 /min 2016-01-25 Heart Rate 88 /min 2015-07-06 Heart Rate 62 /min 2014-08-18 Heart Rate 72 /min 2014-05-19 Oximetry 97 2016-04-28 Oximetry 99 2014-05-19 Respiratory Rate 16 /min 2014-05-19 BMI 38.79 kg/m2 2020-05-18 BMI 38.36 kg/m2 2020-03-23 BMI 38.02 kg/m2 2019-09-30 BMI 36.33 kg/m2 2016-04-28 BMI 36.43 kg/m2 2016-04-04 BMI 36.79 kg/m2 2016-01-25 BMI 37.18 kg/m2 2015-10-19 BMI 36.50 kg/m2 2015-01-28 BMI 36.33 kg/m2 2014-08-18 BMI 36.16 kg/m2 2014-05-19 BMI 36.84 kg/m2 2014-01-13 Blood pressure systolic 153 mm Hg 2016-04-28 Blood pressure diastolic 86 mm Hg 2016-04-28 MEDICATIONS Medication Instructions Dosage Frequency Start End Duration Statu s Date Date Centrum Silver Active Ultra Womens - ProAir HFA 108 Inhalation every 1 puff as 4h Active (90 Base) MCG/ACT 4 hrs needed Aspirin 325 MG Orally Once a 1 tablet 24h 90 days Ac tive day Sertraline HCl 50 Orally Once a 1 tablet 24h 90 days Active MG day Cetirizine HCl 10 Orally Once a 1 tablet 24h 90 days Active MG day Melatonin Active Azelastine HCl Nasally Twice a 1 puff in 12h 30 Active 0.1 % day each nostril Modafinil 100 MG Orally Once a 1 tablet in 24h 90 da ys Active day the morning Levothyroxine Orally Once a 0.5 tablet 24h A ctive Sodium 25 MCG day on an empty stomach in the morning PROCEDURES Procedure Date Ordered Result Body Site ALLERGY INJ MULT November 09, 2015 ALLERGY INJ MULT Feb 03, 2020 ALLERGY INJ MULT Jun 25, 2021 ALLERGY INJ MULT December 16, 2014 ALLERGY INJ MULT Jun 18, 2018 ALLERGY INJ MULT October 19, 2015 ALLERGY INJ MULT January 01, 2018 INTRADERMAL TESTS August 18, 2014 M ANTIGEN THERAPY SERV (1ml=1unit) Jun 25, 2021 ALLERGY INJ MULT January 04, 2017 ALLERGY INJ MULT Mar 25, 2019 ALLERGY INJ MULT Jun 01, 2020 ALLERGY INJ MULT May 05, 2014 ALLERGY INJ MULT Apr 24, 2017 ALLERGY INJ MULT Jun 08, 2015 ALLERGY INJ MULT Mar 23, 2015 ALLERGY INJ MULT November 05, 2018 ALLERGY INJ MULT Mar 23, 2020 ALLERGY INJ MULT Feb 01, 2016 ALLERGY INJ MULT Feb 25, 2022 ALLERGY INJ MULT May 14, 2018 ALLERGY INJ MULT January 07, 2019 P ANTIGEN THERAPY SERV (.5ml=1 unit) Mar 05, 2014 ALLERGY INJ MULT Jun 06, 2016 ALLERGY INJ MULT August 21, 2017 ALLERGY INJ MULT December 28, 2015 ALLERGY INJ MULT Apr 06, 2020 ALLERGY INJ MULT May 11, 2015 ALLERGY INJ MULT Feb 16, 2015 ALLERGY INJ MULT August 20, 2018 ALLERGY INJ MULT Aug 01, 2016 ALLERGY INJ MULT December 14, 2020 ALLERGY INJ MULT September 10, 2014 ALLERGY INJ MULT Apr 22, 2022 ALLERGY INJ MULT Aug 03, 2015 ALLERGY INJ MULT Jun 24, 2019 M ANTIGEN THERAPY SERV (1ml=1unit) Jan 23, 2017 ALLERGY INJ MULT Aug 03, 2020 ALLERGY INJ MULT Jun 16, 2014 ALLERGY INJ MULT Jul 24, 2017 ALLERGY INJ MULT Jul 10, 2017 ALLERGY INJ MULT Apr 15, 2022 ALLERGY INJ MULT May 23, 2016 ALLERGY INJ MULT January 11, 2016 ALLERGY INJ MULT Jul 20, 2020 ALLERGY INJ MULT Feb 25, 2019 ALLERGY INJ MULT Jun 09, 2014 ALLERGY INJ MULT October 15, 2018 ALLERGY INJ MULT December 23, 2015 ALLERGY INJ MULT Mar 02, 2015 ALLERGY INJ MULT Mar 30, 2020 ALLERGY INJ MULT October 29, 2021 ALLERGY INJ MULT May 06, 2015 ALLERGY INJ MULT Mar 27, 2017 ALLERGY INJ MULT January 14, 2019 ALLERGY INJ MULT December 14, 2015 ALLERGY INJ MULT Jan 20, 2020 ALLERGY INJ MULT October 12, 2015 ALLERGY INJ MULT January 05, 2015 ALLERGY INJ MULT Jul 30, 2021 M ANTIGEN THERAPY SERV (1ml=1unit) Feb 25, 2019 ALLERGY INJ MULT October 03, 2016 ALLERGY INJ MULT Apr 16, 2021 ALLERGY INJ MULT October 20, 2014 ALLERGY INJ MULT October 05, 2020 ALLERGY INJ MULT Jul 21, 2014 ALLERGY INJ MULT October 16, 2017 INTRADERMAL TESTS Mar 10, 2014 ALLERGY INJ MULT Jan 23, 2017 ALLERGY INJ MULT Mar 17, 2014 ALLERGY INJ MULT August 24, 2015 P ANTIGEN THERAPY SERV (.5ml=1 unit) January 08, 2015 ALLERGY INJ MULT May 04, 2016 ALLERGY INJ MULT Jan 31, 2018 ALLERGY INJ MULT September 29, 2014 ALLERGY INJ MULT Feb 19, 2021 ALLERGY INJ MULT September 05, 2016 M ANTIGEN THERAPY SERV (1ml=1unit) Feb 26, 2018 ALLERGY INJ MULT Feb 09, 2015 ALLERGY INJ MULT August 20, 2018 ALLERGY INJ MULT Jan 25, 2016 ALLERGY INJ MULT December 30, 2019 ALLERGY INJ MULT Apr 02, 2014 ALLERGY INJ MULT January 09, 2017 ALLERGY INJ MULT Aug 05, 2019 ALLERGY INJ MULT September 17, 2021 ALLERGY INJ MULT September 04, 2017 ALLERGY INJ MULT Jun 30, 2014 ALLERGY INJ MULT Apr 09, 2018 ALLERGY INJ MULT September 07, 2020 ALLERGY INJ MULT Apr 04, 2016 ALLERGY INJ MULT September 07, 2015 P ANTIGEN THERAPY SERV (.5ml=1 unit) Aug 11, 2014 ALLERGY INJ MULT Feb 11, 2019 ALLERGY INJ MULT May 25, 2015 ALLERGY INJ MULT Apr 21, 2014 ALLERGY INJ MULT May 04, 2020 ALLERGY INJ MULT December 05, 2016 SHAVE TRUNK/EXT <.5CM Mar 23, 2020 M ANTIGEN THERAPY SERV (1ml=1unit) Mar 09, 2020 SPIROMETRY Feb 24, 2014 SHAVE TRUNK/EXT <.5CM September 30, 2019 ALLERGY INJ MULT November 06, 2017 SHAVE TRUNK/EXT 0.6-1.0CM May 18, 2020 ALLERGY INJ MULT Aug 04, 2014 SHAVE TRUNK/EXT <.5CM September 30, 2019 ALLERGY INJ MULT November 02, 2020 SHAVE TRUNK/EXT <.5CM September 30, 2019 ALLERGY INJ MULT May 30, 2016 SHAVE TRUNK/EXT <.5CM September 30, 2019 M ANTIGEN THERAPY SERV (1ml=1unit) October 19, 2015 ALLERGY INJ MULT Apr 22, 2019 ALLERGY INJ MULT Jun 29, 2015 ALLERGY INJ MULT Mar 25, 2022 ALLERGY INJ MULT Jun 05, 2017 ALLERGY INJ MULT May 26, 2014 ALLERGY INJ MULT Jun 29, 2020 ALLERGY INJ MULT Feb 29, 2016 ALLERGY INJ MULT Feb 04, 2022 ALLERGY INJ MULT December 03, 2018 ALLERGY INJ MULT Apr 20, 2015 ALLERGY INJ MULT Feb 17, 2020 ALLERGY INJ MULT November 23, 2015 ALLERGY INJ MULT October 19, 2015 ALLERGY INJ MULT Jul 16, 2018 ALLERGY INJ MULT Jun 23, 2014 ALLERGY INJ MULT Jun 01, 2015 ALLERGY INJ MULT August 17, 2020 ALLERGY INJ MULT Apr 30, 2014 ALLERGY INJ MULT Mar 21, 2016 ALLERGY INJ MULT May 18, 2020 P ANTIGEN THERAPY SERV (.5ml=1 unit) May 08, 2014 ALLERGY INJ MULT Jan 18, 2016 ALLERGY INJ MULT September 02, 2019 ALLERGY INJ MULT Jan 28, 2019 ALLERGY INJ MULT October 29, 2018 ALLERGY INJ MULT May 18, 2015 ALLERGY INJ MULT Mar 16, 2015 ALLERGY INJ MULT Apr 20, 2020 ALLERGY INJ MULT November 12, 2021 ALLERGY INJ MULT January 04, 2016 ALLERGY INJ MULT Apr 10, 2017 ALLERGY INJ MULT Feb 26, 2018 ALLERGY INJ MULT Jan 27, 2020 ALLERGY INJ MULT September 03, 2018 ALLERGY INJ MULT November 02, 2015 ALLERGY INJ MULT Feb 25, 2015 ALLERGY INJ MULT Jul 06, 2015 ALLERGY INJ MULT October 15, 2021 ALLERGY INJ MULT May 28, 2018 ALLERGY INJ MULT Mar 13, 2017 ALLERGY INJ MULT December 01, 2014 ALLERGY INJ MULT Apr 14, 2014 ALLERGY INJ MULT Jun 08, 2021 ALLERGY INJ MULT December 21, 2016 ALLERGY INJ MULT January 13, 2020 M ANTIGEN THERAPY SERV (1ml=1unit) January 04, 2021 ALLERGY INJ MULT September 28, 2015 SHAVE S/N/H/F/G .6 - 1.0CM May 18, 2020 ALLERGY INJ MULT Jun 15, 2015 ALLERGY INJ MULT Mar 10, 2014 ALLERGY INJ MULT Mar 26, 2018 SHAVE FACE <.5 CM Mar 23, 2020 ALLERGY INJ MULT November 17, 2014 SHAVE TRUNK/EXT 1.1-2.0CM September 30, 2019 ALLERGY INJ MULT Apr 30, 2021 PRICK TESTS Feb 24, 2014 ALLERGY INJ MULT Feb 15, 2016 ALLERGY INJ MULT December 14, 2015 ALLERGY INJ MULT January 11, 2021 ALLERGY INJ MULT November 19, 2018 ALLERGY INJ MULT August 20, 2018 ALLERGY INJ MULT Apr 13, 2015 ALLERGY INJ MULT December 29, 2014 ALLERGY INJ MULT Mar 18, 2022 ALLERGY INJ MULT September 03, 2021 ALLERGY INJ MULT Feb 10, 2020 ALLERGY INJ MULT Feb 13, 2017 ALLERGY INJ MULT November 18, 2015 ALLERGY INJ MULT Mar 24, 2014 M ANTIGEN THERAPY SERV (1ml=1unit) September 02, 2019 ALLERGY INJ MULT November 07, 2016 ALLERGY INJ MULT May 16, 2016 ALLERGY INJ MULT October 19, 2020 ALLERGY INJ MULT Jul 28, 2014 ALLERGY INJ MULT October 30, 2017 ALLERGY INJ MULT May 08, 2017 ALLERGY INJ MULT Jul 27, 2015 ALLERGY INJ MULT Jun 22, 2015 ALLERGY INJ MULT May 20, 2019 ALLERGY INJ MULT Apr 08, 2019 M ANTIGEN THERAPY SERV (1ml=1unit) Jun 11, 2015 M ANTIGEN THERAPY SERV (1ml=1unit) Jul 25, 2016 ALLERGY INJ MULT Jul 18, 2016 ALLERGY INJ MULT November 30, 2020 ALLERGY INJ MULT September 01, 2014 ALLERGY INJ MULT December 23, 2019 ALLERGY INJ MULT Jul 02, 2018 ALLERGY INJ MULT August 31, 2015 ALLERGY INJ MULT December 22, 2014 ALLERGY INJ MULT Jan 26, 2015 ALLERGY INJ MULT Jul 09, 2021 ALLERGY INJ MULT Mar 12, 2018 ALLERGY INJ MULT January 16, 2017 ALLERGY INJ MULT October 13, 2014 M ANTIGEN THERAPY SERV (1ml=1unit) Feb 04, 2022 ALLERGY INJ MULT Mar 19, 2021 ALLERGY INJ MULT Aug 17, 2015 ALLERGY INJ MULT September 19, 2016 ALLERGY INJ MULT January 12, 2015 M ANTIGEN THERAPY SERV (1ml=1unit) August 20, 2018 ALLERGY INJ MULT January 15, 2018 INTRADERMAL TESTS Feb 24, 2014 ALLERGY INJ MULT September 22, 2014 ALLERGY INJ MULT September 18, 2017 ALLERGY INJ MULT December 28, 2020 ALLERGY INJ MULT October 01, 2021 ALLERGY INJ MULT January 06, 2020 ALLERGY INJ MULT Apr 07, 2014 ALLERGY INJ MULT Mar 06, 2017 ALLERGY INJ MULT November 12, 2014 ALLERGY INJ MULT Apr 23, 2018 ALLERGY INJ MULT Jan 28, 2015 ALLERGY INJ MULT September 14, 2015 ALLERGY INJ MULT Apr 02, 2021 ALLERGY INJ MULT Jul 07, 2014 ALLERGY INJ MULT August 22, 2016 ALLERGY INJ MULT September 21, 2020 M ANTIGEN THERAPY SERV (1ml=1unit) August 21, 2017 ALLERGY INJ MULT Apr 18, 2016 ALLERGY INJ MULT Jul 22, 2019 P ANTIGEN THERAPY SERV (.5ml=1 unit) January 15, 2015 ALLERGY INJ MULT Aug 07, 2017 ALLERGY INJ MULT Mar 11, 2019 ALLERGY INJ MULT November 24, 2014 ALLERGY INJ MULT May 21, 2021 ALLERGY INJ MULT October 24, 2016 M ANTIGEN THERAPY SERV (1ml=1unit) Aug 12, 2020 INTRADERMAL TESTS May 19, 2014 ALLERGY INJ MULT November 29, 2017 ALLERGY INJ MULT August 25, 2014 ALLERGY INJ MULT November 18, 2020 ALLERGY INJ MULT Jun 27, 2016 M ANTIGEN THERAPY SERV (1ml=1unit) Jan 25, 2016 ALLERGY INJ MULT May 06, 2019 ALLERGY INJ MULT Jul 15, 2015 ALLERGY INJ MULT Apr 01, 2022 ALLERGY INJ MULT Jun 28, 2017 ALLERGY INJ MULT Jun 02, 2014 ALLERGY INJ MULT Jul 13, 2020 ALLERGY INJ MULT Mar 16, 2016 ALLERGY INJ MULT Feb 11, 2022 ALLERGY INJ MULT December 18, 2017 ALLERGY INJ MULT December 17, 2018 ALLERGY INJ MULT May 12, 2014 ALLERGY INJ MULT Apr 27, 2015 ALLERGY INJ MULT Jun 15, 2020 ALLERGY INJ MULT Mar 02, 2020 RESULTS Name Result Date Reference Range BASIC METABOLIC PROFILE SODIUM POTASSIUM CHLORIDE CO2 CALCIUM GLUCOSE BLOOD UREA NITROGEN CREATININE eGFR Calculated Value EGFR COMMENT OSMOLARITY ANION GAP BUN/CREATININE RATIO Estimated Glom Filt Rate TSH THYROID STIMULATING HORMONE GLYCOHEMOGLOBIN A1C HEMOGLOBIN A1c est AVE GLUCOSE T4, FREE FREE T4 T3 TOTAL TOTAL T3 THYROID STIMULATING IMMUNOGLOBULINS ([id number]) Thyroid Stim Immunoglobulin VITAMIN D - 25(OH) Vitamin D Com Interpretation Spirometry 2014-02-24 REASON FOR VISIT ENT allergy injection, Allergy Shot, Allergy Shot, ENT allergy injection, ENT allergy injection, ENTallergy injection, ENT allergy injection, ENT allergy injection, ENT allergy injection, allergy shots, ENT skin lesion, allergy shots, pfp 2 vials, serum mix, Allergy Shots, Allergy Shots, ENT Allergy Shot, ENT Allergy Shot, ENT Allergy Shot, ENT Allergy Shot, ENT Allergy Shot, ENT allergy injection, pfp 2 vials, pfp 2 vials, ENT allergy injection, PFP Allergy Initial Injections. [place] TurnStaron Disclaimer, Allergy Injection, Serum mix, Allergy Injection, Allergy Injection, Allergy Injection, Allergy Injection, Allergy Injection, Allergy Injection, pfp 2 vials, Allergy Injection, ENT spot on face, ENT Allergy shot, Serum Mix, NEW SERUM, ENT Allergy shot, ENT allergy shot, ENT allergy shot, ENTallergy shot, ENT allergy shot, Allergy Shot, pfp 2 vials, Allergy Shot, pfp 2 vials, Allergy Shot, pfp 2 vials, Allergy Shot, ENT allergy shot, Allergy Shot, pfp 2 vials, Allergy Shot, PFP Allergy Initial Injections. [place] TurnStaron Disclaimer, ENT New Serum Mix, Allergy Shot, Allergy Shot, pfp 2vials, Allergy Shot, pfp 2 vials, Allergy Shot, pfp 2 vials, Allergy Shot, pfp 2 vials, Allergy Shot, pfp 2 vials, Allergy Shot, pfp 2 vials, ENT Lesion on Neck, PFP Shave Excision, PFP EST PATIENT (S), Allergy Shot, pfp 2 vials, ENT Allergy Shot, pfp 2 vials, ENT allergy shot, pfp 2 vials, ENT allergy shot, pfp 2 vials, ENT allergy shot, PFP Allergy Initial Injections. [place]field Dragon Disclaimer, ENT lesion under R eye , PFP Est Patient (L), PFP Shave Excision, ENT lesion under R eye, PFP Est Patient (L), PFP Shave Excision, ENT allergy shot, ENT New Serum, Allergy shots, pfp 2 vials, Allergy s hots, pfp 2 vials, Allergy shots, pfp 2 vials, Allergy shots, pfp 2 vials, Allergy shots, pfp 2 vials, Allergy shots, pfp 2 vials, Allergy shots, pfp 2 vials, Allergy shots, pfp 2 vials, Allergy shots,pfp 2 vials, Allergy shots, pfp 2 vials, itchy skin after lesion removal , ENT allergy shot, ENT , PFP Est Patient (L), ENT allergy shot, ENT allergy shot, PFP Allergy Initial Injections. [place]field Dragon Disclaimer, MEGAN New Serum , ENT nevus db, pfp 2 vials, pfp 2 vials, ENT allergy shot, pfp 2 vials, ENT allergy shot, pfp 2 vials, ENT allergy shot, pfp 2 vials, ENT allergy shot, pfp 2 vials, ENTallergy shot, pfp 2 vials, ENT allergy shot, pfp 2 vials, ENT allergy shot, pfp 2 vials, ENT allergyshot, PFP Allergy Initial Injections. [place] Dragon Disclaimer, Patient is waking up a lot in the night, however she is reporting a slight decrease to her overall allergy symptoms typical of thistime of year. Has had some increased sxs over past 1-2 weeks related to ragweed. is trying some new methods for congestion relief via Oregano oil into steaming water ., ENT New Serum, ENT allergy shot,pfp 2 vials, ENT allergy shot, pfp 2 vials, ENT allergy shot, pfp 2 vials, ENT allergy shot, pfp 2 vials, ENT allergy shot, ENT allergy shot, pfp 2 vials, ENT allergy shot, pfp 2 vials, ENT allergy shot, pfp 2 vials, pfp 2 vials, ENT allergy shot, pfp 2 vials, ENT allergy shot, pfp 2 vials, ENT allergy shot, pfp 2 vials, PFP Allergy Initial Injections. [place] Dragon Disclaimer, PFP Allergy Initial Injections. [place] Dragon Disclaimer, PFP Allergy Initial Injections. [place] Dragon Disclaimer, ENT New Serum, ENT allergy shot, ENT allergy shot, pfp 2 vials, ENT allergy shot, pfp 2 vials, ENT Allergy Shot , pfp 2 vials, pfp 2 vials, astelin refill, ENT allergy shot, pfp 2 vials, ENT allergy shot, pfp 2 vials, ENT allergy shot, pfp 2 vials, ENT allergy shot, pfp 2 vials, ENT allergy shot, PFP Allergy Initial Injections. [place] Dragon Disclaimer, ENT New Serum, azelastine nasalspray, ENT allergy shot, pfp 2 vials, ENT allergy shot, pfp 2 vials, ENT allergy shot, pfp 2 vials, ENT allergy shot, pfp 2 vials, ENT allergy shot, pfp 2 vials, ENT allergy shot, pfp 2 vials, ENT allergy shot, pfp 2 vials, astelin spray, ENT allergy shot, pfp 2 vials, ENT allergy shot, pfp 2 vials, ENT allergy shot, pfp 2 vials, PFP Allergy Initial Injections. [place] TurnStaron Disclaimer, ENT New Serum, ENT allergy shot, PFP Allergy Initial Injections. [place] TurnStaron Disclaimer, ENT allergyshot, pfp 2 vials, ENT allergy shot, pfp 2 vials, ENT allergy shot, pfp 2 vials, ENT allergy shot, pfp 2 vials, ENT Allergy Shot, pfp 2 vials, pfp 2 vials, ENT allergy Inj, ENT allergy shot, pfp 2 vials, ENT allergy Inj, pfp 2 vials, ENT allergy Inj, pfp 2 vials, ENT allergy injection . pfp 2 vials, ENT allergy shot. pfp 2 vials, ENT allergy shot. PFP Allergy Initial Injections. [place] Dragon Disclaimer, ENT New Serum, ENT allergy shot. pfp 2 vials, ENT Allergy Injection . pfp 2 vials, ENT allergy shot. pfp 2 vials, ENT allergy shot. pfp 2 vials, ENT allergy shot. pfp 2 vials, ENT allergy shot, ENT allergy shot. pfp 2 vials, ENT allergy shot. pfp 2 vials, ENT allergy shot. pfp 2 vials, ENT allergy shot. pfp 2 vials, ENT allergy shot. pfp 2 vials, ENT allergy shot. pfp 2 vials, ENT allergy shot. PFP Allergy Initial Injections. [place] Dragon Disclaimer, ENT New Serum, ENT allergy shot.pfp 2 vials, Decreased dose d/t time lapse, 8-week F/U TSH, FT4, TPO, and CBC w/Diff laboratory result review and discussion since dose decrease of Levothyroxine from 100 mcg PO daily to 75 mcg PO daily., Referred by: KEVIN Hanna., ENT allergy shot. pfp 2 vials, ENT Allergy SHot. pfp 2 vials, ENT allergy shot. pfp 2 vials, ENT Allergy SHot. pfp 2 vials, ENT allergy shot. pfp 2 vials, ENT allergy shot. pfp 2 vials, [facility] 4 WEEK F/U, 4-week F/U regarding TSH, FT4, TT3, TPO Ab, TSI, HbgA1c, BMP, and Vitamin D 25 [place] laboratory result review and discussion, Referred by: Dean Hedrick PA-C, ENT allergy shot. pfp 2 vials, ENT allergy shot. pfp 2 vials, Imparied Fasting Glucose, Hypothyroidism, Referred by: Dean Hedrick PA-C, [facility]- impaired FG's and hypothyroidism, ENT allergy shot. pfp 2 vials, appt, ENT Allergy SHot. pfp 2 vials, ENT Allergy SHot. pfp 2 vials, ENT Allergy SHot. pfp 2 vials, ENT Allergy SHot. pfp 2 vials, ENT Test Wheal. PFP Allergy 3 month f/u. Penfield Dragon Disclaimer. PFP Allergy Initial Injections. [place] Dragon Disclaimer, ENT NEW SERUM, ENT Allergy SHot. pfp 2 vials, ENT Allergy SHot. pfp 2 vials, ENT Allergy SHot. pfp 2 vials, ENT Allergy SHot. pfp 2 vials, ENT Allergy SHot. pfp 2 vials, ENT Allergy SHot. pfp 2 vials,ENT Allergy SHot, ENT Allergy SHot. pfp 2 vials, ENT Allergy SHot. pfp 2 vials, ENT Allergy SHot. pfp 2 vials, ENT Allergy SHot. pfp 2 vials, ENT test wheal. PFP Allergy 3 month f/u. PFP Allergy Initial Injections, ENT test wheal. pfp 2 vials, ENT New Serum, ENT Allergy SHot. pfp 2 vials, ENT Allergy SHot. pfp 2 vials, ENT Allergy SHot. pfp 2 vials, Continue maintenance doses of 0.50ml, ENT Allergy SHot. pfp 2 vials, Continue maintenance doses of 0.50ml, ENT Allergy Shot, Increase doses to 0.50ml. pfp 2 vials, ENT Allergy SHot. pfp 2 vials, Continue maintenance doses of 0.50ml, ENT Allergy SHot. pfp 2 vials, ENT Allergy SHot. pfp 2 vials, Continue 0.50cc maintenance dose, ENT Allergy SHot. pfp 2 vials, Continue 0.50cc maintenance dose, Blank, ENT Allergy SHot. pfp 2 vials, Increase doses to 0.50ml per new dosing protocol for patients at C2 and above per PFP, ENT 3 month check in. PFP Allergy 3 month f/u. pfp 2 vials, Repeat doses of 0.25ml due to time lapse, ENT Allergy SHot, ENT Allergy SHot. pfp 2 vials, ENT Allergy SHot, Increase dose to 0.25ml. pfp 2 vials, ENT Allergy SHot. PFP Allergy Initial Injections, Starting new vial today at C3, ENT NEW SERUM, ENT Allergy SHot. pfp 2 vials, Increase dose to 0.50ml. PFP Allergy Initial Injections. PFP Allergy Initial Injections, ENT Allergy SHot, ENT Allergy SHot, Increase dose to 0.40ml, ENT Allergy SHot, ENT Allergy SHot, Increase dose to 0.30cc, ENT Allergy SHot, Increase dose to 0.25cc., ENT Allergy SHot, Increrase dose to 0.20cc.., ENT Allergy SHot, pt has serum through 05/18, Decrease dosage to 0.15cc due to lapse of time between injections., ENT Allergy SHot, ENT Allergy SHot, Repeat dose 0.25cc due to time lapse, ENT Allergy SHot, Increase dose to 0.30cc , ENT Allergy SHot, Increase dose to 0.25cc., ENT Allergy SHot, Repeat 0.20cc dose due to time lapse. PFP Allergy multi-injections, ENT Allergy SHot, Increase dose to 0.20cc. PFP Allergy multi- injections.. PFP Allergy multi-injections, ENT Allergy SHot, Increase to dose 0.15cc. PFP Allergy multi-injections, ENT Allergy SHot, increase dose to 0.10cc. PFP Allergy multi-injections, ENT Allergy SHot. PFP Allergy multi-injections, repeat dose due to time lapse, script, ENT test wheal with pfp. PFP Allergy multi-injections. PFP allergy discussion. PFP Allergy 3 month f/u, ENT test wheal with pfp, ENT TW w/PFP . PFP Allergy 3 month f/u. PFP Allergy multi- injections, ENT TW w/PFP , ENT Allergy SHot, ENT Allergy SHot, ENT test wheal. PFP Allergy single test wheal, REMIX, ENT Allergy SHot. PFP Allergy multi- injections, ENT Allergy SHot. PFP Allergy multi-injections, ENT Allergy SHot. PFP Allergy multi-injections, ENT Allergy Shot. PFP Allergy multi-injections, ENT Allergy SHot, ENT Allergy SHot, ENT Allergy SHot. PFP Allergy multi- injections, ENT Allergy SHot. PFP Allergy multi-injections, cancel appt, ENT Allergy SHot. PFP Allergy multi-injections, ENT Allergy SHot. PFP Allergy multi- injections, ENT Allergy SHot, ENT Allergy SHot, ENT Allergy SHot. PFP Allergy multi-injections, ENTAllergy SHot. PFP Allergy multi-injections, ENT Allergy SHot. PFP Allergy multi-injections, ENT Allergy SHot. PFP Allergy multi- injections, pfp blank, ENT Allergy SHot. PFP Allergy multi-injections, ENT allergy shot. PFP Allergy multi-injections, ENT allergy shot. PFP Allergy multi- injections, ENT TW w/PFP. PFP Allergy 3 month f/u. PFP Allergy multi test wheals, ENT TW w/ PFP, ENT Serum mix , ENT allergy shot. PFP Allergy multi- injections, ENT allergy shot. PFP Allergy multi-injections, ENT allergy shot. PFP Allergy multi-injections, ENT allergy shot. PFP Allergy multi-injections, ENT allergy shot.PFP Allergy multi-injections, ENT allergy shot. PFP Allergy multi-injections, ENT allergy shot. PFP Allergy multi-injections, ENT allergy shot. PFP Allergy multi-injections, ENT allergy shot. PFP Allergy multi- injections, ENT allergy shot. PFP Allergy multi-injections, ENT TW W PFP. PFP Allergy 3 month f/u. PFP Allergy multi test wheals, Intial SNOT of 28 today is 28, ENT TW W PFP, ENT Allergy Shot. PFP Allergy multi-injections, ent serum, ENT Allergy Shot. PFP Allergy multi-injections, ENT Allergy Shot. PFP Allergy multi- injections, ENT Allergy Shot. PFP Allergy multi-injections, ENT Allergy Shot.PFP Allergy multi-injections, ENT Allergy Shot. PFP Allergy multi-injections, ENT Allergy Shot. PFP Allergy multi-injections, ENT Allergy Shot. PFP Allergy multi- injections, ENT TW no PFP . PFP Allergymulti-injections, ENT TW no PFP . PFP Allergy multi test wheals, ent serum new, ENT Allergy Test. PFP Allergy Test, ENT [employer] allergy consult. PFP allergy discussion Insurance Providers [facility] Member Patient Patient Patient Patient Patient Subscriber Subscriber Subscriber Group Insurance Plan Plan Plan Plan ID Relationship Address Phone Name Date of ID Name Date of No Type Insurance Insurance Insurance Coverage to Subscriber Address Phone Name Dates [facility] [phone] [facility] self Zuly [id number] MEDICARE [id number] [place] [phone] [facility] [address] [facility] - self Zuly [id number] DO JOHANNA Seay (Write BETTE (Write Off) [place] [address] Off)
[2022-06-24 19:30] LABS: Hemoglobin A1C 5.9 % (<5.7)
[2022-06-24 19:36] LABS: TSH 0.19 uIU/mL (0.36-3.74)
== END 2022-06-24 16:55 | disposition home or self-care (01) ==
LOC: NCHCN 16:54
PROVIDERS: PCP Physician Assistant Medical; Visit Provider Physician Assistant Medical
DX: R73.03 Prediabetes (principal); E03.9 Hypothyroidism, unspecified
CPT/HCPCS: 83036; 84443

== ENCOUNTER 2022-08-08 10:48 | Outpatient (CLI) | payer MEDICARE, SELFPAY ==
--- NOTE | 2022-08-08 10:30 | DI.RAD_ITS ---
Exam(s) XR KNEE LT 2V AP,LAT EXAM: XR KNEE LT 2V AP,LAT INDICATION: ANNUAL F/U L TKA. COMPARISON: CR XR KNEE LT 1V from 07/20/2021 CR XR STANDING ALIGNMENT from 08/16/2021 CR XR KNEE LT 1V from 08/16/2021 TECHNIQUE: 2D digital imaging was performed. Two views. FINDINGS: There has been no change in the alignment of the total knee prosthesis. No suspicious bony lucencies are seen. DATA REPOSITORY: RADIATION DOSE DELIVERED:
== END 2022-08-08 10:49 | disposition home or self-care (01) ==
LOC: DIORS 10:49
PROVIDERS: PCP Physician Assistant Medical; Referring Provider Physician Assistant Medical; Visit Provider Student in an Organized Health Care Education/Training Program
DX: Z96.652 Presence of left artificial knee joint (principal)
CPT/HCPCS: 99213; 73560

== ENCOUNTER 2022-09-26 00:36 | Outpatient (CLI) | payer MEDICARE, SELFPAY ==
--- NOTE | 2022-09-26 | DI.MRI_ITS ---
Exam(s) MR LUMBAR SPINE WO EXAM: MR LUMBAR SPINE WO CLINICAL HISTORY: BACK PAIN W/RADICULOPATHY M54.16. TECHNIQUE: Multiplanar multisequence MRI of the Lumbar spine was performed. COMPARISON: No exams were available for comparison FINDINGS: Bones: The last intervertebral disc space is designated the L5/S1 level for the numbering purpose of this examination. The vertebral body heights are well maintained. Alignment is satisfactory. There are mild degenerative endplate signal changes present. Cord: The conus tip ends at the L1 level. It is of normal size and signal intensity. T12-L1: No disc herniations or bulges are present. No central spinal canal or neural foraminal stenos is. L1-2: No disc herniations or bulges are present. No central spinal canal or neural foraminal stenosis . L2-3: No disc herniations or bulges are present. No central spinal canal or neural foraminal stenosis . L3-4: There is a mild diffuse disc bulge. There are degenerative changes of the facets. The finding s cause mild narrowing of the central spinal canal. No significant neural foraminal stenosis is pres ent. L4-5: There are hypertrophic changes of the facets and mild diffuse disc bulge. These all contribute to cause mild narrowing of the central spinal canal. No significant neural foraminal stenosis is pr esent. L5-S1: There is a diffuse disc bulge. There are hypertrophic changes of the facets. The findings do result in mild narrowing of the central spinal canal and right neural foramen. The left neural fora men is patent. Soft tissues: The visualized SI joints and sacrum are well maintained. The paraspinal soft tissues ar e unremarkable. IMPRESSION: Multilevel degenerative changes in the lumbar spine as described above. Central spinal canal narrowi ng is seen at L3-4 through L5-S1. There is mild narrowing of the right L5-S1 neural foramen. DATA REPOSITORY:
== END 2022-09-26 00:56 ==
LOC: DI 00:37
PROVIDERS: PCP Physician Assistant Medical; Visit Provider Physician Assistant Medical
DX: M54.16 Radiculopathy, lumbar region (principal)
CPT/HCPCS: 72148

== ENCOUNTER → 2023-01-13 11:27 | Outpatient (BNVA) | payer MEDICARE, SELFPAY | PROVIDERS: PCP Physician Assistant Medical; Referring Provider Physician Assistant Medical; Visit Provider Surgery | DX: K21.9 Gastro-esophageal reflux disease without esophagitis (principal) | CPT/HCPCS: 99212; 99214 ==

== ENCOUNTER 2023-03-08 07:41 | Day surgery (SDC) | payer MEDICARE, SELFPAY ==
--- NOTE | 2023-03-08 06:31 | W.PM.PROGNOT ---
Date of Service Date of service: 03/08/23 Assessment and Plan Assessment and plan (1) GERD (gastroesophageal reflux disease): Status: Chronic
--- NOTE | 2023-03-08 06:32 | ENDO_ITS ---
Date of service: 03/08/23 Time of Service: 09:47 Endoscopy Report DATE OF PROCEDURE: 03/08/23 PRE-OP DIAGNOSIS: GERD POST-OP DIAGNOSIS: same (Hiatal Hernia, GAstritis and esophagitis) PROCEDURE: EGD with biopsies SURGEON: Tri Hernandez ANESTHESIA TYPE: General:No Airway ESTIMATED BLOOD LOSS: 3 PATHOLOGY: other (Bx of stomach and GE junction) COMPLICATIONS: None DISPOSITION: same day INDICATIONS: Zuly is a pleasant 67-year-old female with some reflux type symptoms.? She was placed on pantoprazole for a total of 4 weeks which she has now finished.? She was then switched over to [id number] famotidine 20 mg daily.? The patient's only been taking it as needed and taking Tums as well in between.? I discussed the pathophysiology of reflux with her.? Recommend taking famotidine 20 mg daily for the next 2 weeks to see what symptoms she is left with.? If symptoms resolve completely then I do not think she needs an upper endoscopy as she is at low risk for cancer.? If her symptoms do not improve or get worse then we will schedule her for an upper endoscopy.? I did tell the patient that without an endoscopy I certainly cannot rule out Saldana's but again she is at low risk for that at this time as long as we control her reflux.? Patient agrees with the above-stated plan. FINDINGS: mild inflammation of the stomach and esophagus PROCEDURE DESCRIPTION: After informed consent was obtained the patient was take to the procedure room and placed in a supine position. Monitors were applied and a time out was done. The patients name, date of , procedure type, allergies to medications and metal in their body was reviewed. A bite block was placed and the patient was sedated. Once sedated and comfortable the gastroscope was advanced through the oropharynx which was grossly normal into the esophagus. The proximal and mid- esophagus were normal. In the distal esophagus there was mild inflammation noted. The scope was advanced into the stomach and through the pylorus into the 3rd portion of the duodenum. The duodenum was noted to be normal. The scope was retracted back into the stomach. There is mild inflammation noted and biopsies were done to rule out H. pylori. There were no ulcers. The scope was retroflexed. The cardia and fundus were noted to be normal. There was a 3 cm hiatal hernia noted. The scope was retracted back into the esophagus and biopsies were done of the GE junction to rule out Saldana's. The Z line was regular. The GE junction was at 38 cm. The scope was removed and the patient was woken up and taken back to [facility] in stable condition.
--- NOTE | 2023-03-08 06:34 | W.PM.DSUDISC ---
Date of service: 03/08/23 Time of Service: 09:59 Discharge Plan Disposition Patient Disposition: Home Condition: Stable Discharge Details Reason For Visit: GERD Attending Provider: Tri Hernandez Primary Care Provider: Brenda Hedrick Home Meds and New Rx's Prescriptions: New omeprazole 40 mg capsule,delayed release(DR/EC) 40 mg PO DAILY Qty: 30 3RF Continued Eliquis 5 mg tablet 5 mg PO BID loratadine 10 mg tablet 10 mg PO DAILY PreserVision AREDS-2 250-90-40-1 mg capsule 1 tab PO BID Centrum Silver Women 8 mg iron-400 mcg-50 mcg tablet 1 tab PO DAILY modafinil [Provigil] 200 mg tablet 200 mg PO QAM ibuprofen 200 mg tablet 200 mg PO Q6H PRN ondansetron HCl 4 mg tablet 4 mg PO Q6H PRN sertraline 100 mg tablet 100 mg PO DAILY levothyroxine 25 mcg tablet 12.5 mcg PO .COMPLEX Patient Comments: pt ststes current dose is 12.5mg QOD Rx Instructions: 12.5 mcg orally every other day; meclizine 12.5 mg tablet 12.5 mg PO TID PRN albuterol sulfate [Proventil HFA] 6.7 GM HFA aerosol inhaler 6.7 gm Inhalation PRN PRN acetaminophen 500 mg capsule 1,000 mg PO Q8H PRN PRNQty: 90 0RF fluticasone propion-salmeterol [Advair HFA] 60 PUFF HFA aerosol inhaler 2 puff Inhalation BID Discontinued famotidine 20 mg tablet 20 mg PO DAILY Discharge Instructions Instructions: Hiatal Hernia (DC), Gastritis (ED), GERD (Gastroesophageal Reflux Disease) (DC) Additional Instructions: Findings: Hiatal hernia Esophagitis Gastritis Follow up: 2 weeks Please call if you develop: fevers >101.5 Nausea or Vomiting Abdominal pain that is not transient Rectal bleeding that is more then a tbsp A hard abdomen and inability to pass gas DAY SURGERY UNIT POST ENDOSCOPY INSTRUCTIONS Instructions for everyone who is given Anesthesia: For your safety, please do the following for the next 24 Hours: a. Do not drive or operate dangerous equipment b. Do not drink alcohol beverages or use any recreational drugs for the first 24 hours or while taking pain medications. The medications in your body may have a reaction that can be dangerous. c. Do not make any important decisions or sign any important papers 1. Generally there are no restrictions on your activity after a day or so has gone by, but you may feel a bit fatigued for a few days. 2. After you arrive home you may have a light meal and return to a normal diet as you can tolerate it without feeling sick to your stomach. 3. After surgery, you may feel pain or discomfort. This should be only transient, but if it persists please contact your doctor. 4. If there are any questions regarding the findings of your procedure, please feel free to contact your doctor. 6. If you are unable to contact your doctor with a problem, contact the hospital at [phone]. 7. Continue all your regular medications unless directed otherwise. I understand the above instructions and have no questions. Signature of Patient or Responsible Adult Escort Date/Time Name of Responsible Adult Escort Signature of Nurse Date/Time Referrals: Tri Hernandez MD [ [facility] STAFF PHYSICIAN] - 03/24/23 8:00 am Activity:: Activity as Tolerated Diet:: As Tolerated DS: Diagnosis Discharge Diagnosis (1) GERD (gastroesophageal reflux disease): Status: Chronic Asessment and Plan: Patient is seen and examined after their endoscopy. Patient has minimal sore throat. They have been able to tolerate liquids. They do not have any Nausea or Vomiting. They are not having any chest pain or shortness of breath. They have been able to pass gas and are not having any abdominal pain or distention. they have not vomited any blood. The vital signs have been stable-see nursing notes. We discussed findings on their endoscopy We reviewed the importance of lifestyle modifications- see diet recommendations We reviewed any new medications that the patient may be prescribed- see medicine reconciliation. Patient will either be sent a letter with the biopsy results or follow up in the office- see discharge instructions Patient was given explicit instructions for emergency follow up post endoscopy- see discharge instructions Patient verbalized understanding and was discharged in stable and satisfactory condition. See nursing notes.
[2023-03-08 07:50] VITALS: BP 150/94; PULSE 70; RESP 18; TEMP 36.4; O2SAT 98
[2023-03-08] MEDS: Lactated Ringers 1,000 ML 80 ML IV (08:13)
[2023-03-08 08:21] VITALS: BMI 37.3
--- NOTE | 2023-03-08 08:21 | W.ANESPRE ---
General Info Date of Service Date Performed: 03/08/23 Height: 5 ft 5 in Weight: 101.7 kg Body Mass Index (BMI): 37.3 Surgical Procedure: Operation Date: 03/08/23 09:05 Proposed Procedure Side Surgeon p Gastroscopy Tri Hernandez MD Meds Allergies and Home Medications Allergies Allergy/AdvReac Type Severity Reaction Status Date / Time Sulfa (Sulfonamide Allergy Severe Hives Verified 03/08/23 08:01 Antibiotics) cyclobenzaprine Allergy Mild Verified 03/08/23 08:01 doxycycline Allergy Mild Verified 03/08/23 08:01 hydrocodone bitartrate Allergy Mild Itching Verified 03/08/23 08:01 [From Vicodin] methimazole [From Tapazole] Allergy Hives Verified 03/08/23 08:01 prednisone Allergy Itching Verified 03/08/23 08:01 Home Medication Medication Instructions Recorded albuterol sulfate 90 mcg/actuation 6.7 gm inhalation PRN PRN 03/09/13 aerosol inhaler (Proventil HFA) fluticasone propionate 115 2 puff inhalation BID 05/08/17 mcg-salmeterol 21 mcg/actuation HFA inhaler (Advair HFA) apixaban 5 mg tablet (Eliquis) 5 mg PO BID 02/19/21 loratadine 10 mg tablet 10 mg PO DAILY 07/20/21 vit C 250 mg-vit E 90 mg-zinc 40 1 tab PO BID 07/20/21 mg-copper 1 qp-rftssm-ecmsif capsule (PreserVision AREDS-2) acetaminophen 500 mg capsule 1,000 mg PO Q8H PRN PRN #90 caps 08/03/21 sertraline 100 mg tablet 100 mg PO DAILY 08/25/22 levothyroxine 25 mcg tablet 12.5 mcg PO .COMPLEX 01/12/23 meclizine 12.5 mg tablet 12.5 mg PO TID PRN 01/12/23 famotidine 20 mg tablet 20 mg PO DAILY 01/13/23 ibuprofen 200 mg tablet 200 mg PO Q6H PRN 02/10/23 modafinil 200 mg tablet (Provigil) 200 mg PO QAM 02/10/23 beizamry-sfgd-bzwt 8 mg-folic 400 1 tab PO DAILY 02/10/23 mcg-K 50 mcg-lutein 300 mcg tablet (Centrum Silver Women) ondansetron HCl 4 mg tablet 4 mg PO Q6H PRN 02/10/23 Current Visit Medications: Current Medications Generic Name Dose Route Start Last Admin Trade Name Dimas PRN Reason Stop Dose Admin Ringer's Solution 1,000 mls @ 80 mls/hr 03/08/23 06:00 03/08/23 08:13 IV 04/06/23 23:59 80 mls/hr INFUSION ODILIA Administration IV Miscellaneous Supplies 1 each 03/08/23 06:00 Iv Access IV 04/06/23 23:59 DIRECTED ODILIA Ondansetron HCl 4 mg 03/08/23 06:33 Ondansetron 4 Mg/2 Ml Vial IVP 04/07/23 06:32 Q4H PRN PRN Nausea / Vomiting Sodium Chloride 0 ml 03/08/23 06:00 Normal Saline Flush 10 Ml Syr IV 04/06/23 23:59 PRN PRN Sodium Chloride 0 ml 03/08/23 06:00 Normal Saline 10 Ml Vial IJ 04/06/23 23:59 DIRECTED PRN Sterile Water 0 ml 03/08/23 06:00 Water,Injection,Sterile 10 Ml Vial IJ 04/06/23 23:59 DIRECTED PRN PFSH Active Problems Active Problems: Problem Status Onset Code Head congestion R09.81 Vertigo R42 GERD (gastroesophageal reflux disease) K21.9 Factor V Leiden D68.51 Seborrheic keratosis L82.1 Neoplasm of unspecified behavior of bone, soft tissue, and skin D49.2 Trigger finger, right middle finger M65.331 De Quervain's tenosynovitis, right M65.4 Primary osteoarthritis of right knee M17.11 Fracture of fifth metatarsal bone of left foot 10/01/18 S92.352A Right ankle sprain S93.401A Urticaria 01/13/14 L50.9 Trigger ring finger of right hand 06/17/16 M65.341 Trigger ring finger of left hand 06/17/16 M65.342 Trigger finger, left middle finger 01/25/16 M65.332 Rash and nonspecific skin eruption 01/13/14 R21 Postnasal drip 01/13/14 R09.82 Chronic cough 10/19/15 R05 Bilateral primary osteoarthritis of knee 03/20/17 M17.0 Asthma 02/24/14 J45.909 Allergic rhinitis due to pollen 06/01/15 J30.1 Allergic rhinitis due to other allergen 02/24/14 J30.89 Allergic rhinitis 01/13/14 J30.9 Medical History Medical History Adrenal abnormality Anxiety Asthma Atrophic vaginitis Back pain, chronic Chills Constipation Cough Depression Glossitis History of depression History of prediabetes History of pulmonary embolus (PE) Hypothyroidism Impaired fasting glucose Itch of skin Obesity Osteoarthritis Osteoarthritis of knee Somnolence, daytime Thrombocytosis Tremor Vitamin D deficiency Surgical History Surgical History Colonoscopy - MAC (05/15/17) H/O arthroscopy of left knee H/O rhinoplasty History of total left knee replacement (08/03/21) Tobacco Smoking/Tobacco Use Status: Never Alcohol Alcohol Intake: current Alcohol intake frequency: a few times a week Substance Use Substance use: Never Substance use type: does not use Vital Signs and Lab Results Vital Signs Most Recent Vital Signs in EMR: Most Recent Vital Signs Temp Pulse Resp BP Pulse Ox 36.4 C L 70 18 150/94 H 98 03/08/23 07:50 03/08/23 07:50 03/08/23 07:50 03/08/23 07:50 03/08/23 07:50 Lab Results Blood Type / Crossmatch: No Data to Display Complete Blood Count: No Data to Display Complete Metabolic Panel: No Data to Display Liver Function Panel: No Data to Display Coagulation Panel: No Data to Display Cardiac Panel: No Data to Display Arterial Blood Gas: No Data to Display Venous Blood Gas: No Data to Display Pancreas Panel: No Data to Display Thyroid Panel: No Data to Display Infectious Disease: No Data to Display Blood Cultures: No Data to Display Toxicology Panel: No Data to Display Anesthesia Assessment and Plan Anesthesia History Personal History: No History of Anesthesia Complications Family History: No Family History of Anesthesia Complications Exercise Tolerance Exercise Tolerance: Metabolic Equivalents>4 Cardiac & Pulmonary Exam Cardiac Exam: Normal S1/S2 Heart Sounds Pulmonary Exam: Clear Bilateral Breath Sounds Implantable Cardiac Device Does patient have a Pacemaker or an ICD?: No Airway Exam Known Difficult Airway: No Mallampati Class: 2 Mouth Opening: Normal (> 3cm) Thyromental Distance: Less than 3 cm Neck Range of Motion: Full ROM Neck Circumference: Normal Teeth Condition: Normal Dentition ASA Classification ASA Score: ASA 2 Emergency Case?: No NPO Status NPO Status: NPO Clears >2 hours, Solids >8 hours Anesthesia Plan Resuscitation Status: Full Code Anesthesia Technique: General Anesthesia Airway Planned: Natural Airway Monitors Used: Standard Monitors
--- NOTE | 2023-03-08 09:15 | W.PREOPHP ---
Assessment and Plan Assessment and plan (1) GERD (gastroesophageal reflux disease): Status: Chronic Assessment and plan: Zuly is a pleasant 67-year-old female with some reflux type symptoms.? She was placed on pantoprazole for a total of 4 weeks which she has now finished.? She was then switched over to ishm-ola-cbuflxv famotidine 20 mg daily.? The patient's only been taking it as needed and taking Tums as well in between.? I discussed the pathophysiology of reflux with her.? Recommend taking famotidine 20 mg daily for the next 2 weeks to see what symptoms she is left with.? her symptoms didnt improve significantly so we discussed EGD with biopsies. The procedure was explained in detail as well as the possible risks, benefits and complications. After our conversation she had a good understanding of the proceedure and possible complications. Risks, benefits and complications have been reviewed. Complications include but are not limited to bleeding, pain, perforation, sore throat, aspiration, and adverse reaction to the medications. Questions were entertained and answered to their satisfaction and they wished to proceed. No guarantees were given or implied. Proceed with EGD History of Present Illness Narrative: Mrs Liu is a pleasant 67-year-old female who was referred by her primary care physician for consideration of an upper endoscopy.? She tells me that she started having more reflux symptoms and was placed on pantoprazole daily for a month.? She then stepped down to famotidine 20 mg daily.? The patient tells me she has only been taking it as needed and then takes Tums when she has more symptoms.? Prior to taking the pantoprazole she was having a bad taste in the back of her throat.? She denies any dysphagia or heartburn.? She did have an upper endoscopy done many years ago for heartburn.? She is working on dietary changes and weight loss as well.? She is on Eliquis for history of DVT secondary to factor V Leiden deficiency. Current symptoms: Reports dyspepsia (intermittent) Timing of symptoms: Reports intermittent Frequency: other (varies) Pertinent history: Reports alcohol use; Denies tobacco use or NSAID use Previous treatment: Reports PPI Previous procedures: Denies esophageal dilation, Edgar fundoplication, Radiofrequency ablation or Botox injection Previous testing: Reports endoscopy; Denies esophageal manometry, Lemons pH study or barium swallow I saw Zuly in [facility] today. She is doing OK. Still having some breakthrough symptoms even after placing her back on pantoprazole. She denies any Nausea or vomiting. Review of Systems All systems reviewed & are unremarkable except as noted in HPI and below PFSH All Active Problems Head congestion (Acute) Vertigo (Acute) GERD (gastroesophageal reflux disease) (Chronic) Factor V Leiden (Acute) On Eliquis Hx DVT with PE approximately 2009 Seborrheic keratosis (Acute) Neoplasm of unspecified behavior of bone, soft tissue, and skin (Acute) Trigger finger, right middle finger (Acute) De Quervain's tenosynovitis, right (Acute) Primary osteoarthritis of right knee (Acute) Injection: 02/04/2019 Fracture of fifth metatarsal bone of left foot (Acute 10/01/18) Right ankle sprain (Acute) Urticaria (Acute 01/13/14) Trigger ring finger of right hand (Acute 06/17/16) Trigger ring finger of left hand (Acute 06/17/16) Trigger finger, left middle finger (Acute 01/25/16) Rash and nonspecific skin eruption (Acute 01/13/14) Postnasal drip (Acute 01/13/14) Chronic cough (Acute 10/19/15) Bilateral primary osteoarthritis of knee (Acute 03/20/17) Asthma (Acute 02/24/14) Allergic rhinitis due to pollen (Acute 06/01/15) Allergic rhinitis due to other allergen (Acute 02/24/14) Allergy Injections Allergic rhinitis (Acute 01/13/14) Medical History Adrenal abnormality Anxiety Asthma Atrophic vaginitis Back pain, chronic Chills Constipation Cough Depression Glossitis History of depression History of prediabetes History of pulmonary embolus (PE) Hypothyroidism Impaired fasting glucose Itch of skin Obesity Osteoarthritis Osteoarthritis of knee Somnolence, daytime Thrombocytosis Tremor Vitamin D deficiency Surgical History Colonoscopy - MAC (05/15/17) H/O arthroscopy of left knee H/O rhinoplasty History of total left knee replacement (08/03/21) Social History Smoking/Tobacco Use Status: Never Smoking risk assessment performed?: Yes Alcohol Intake: current Alcohol Intake frequency: a few times a week Drug use: Never Substance use type: does not use Housing: apartment Current gender identity: female Do you feel safe at home: Yes Do you feel safe in your relationship?: Yes Additional Social history: lives alone Meds Allergies and Home Medications Allergies Allergy/AdvReac Type Severity Reaction Status Date / Time Sulfa (Sulfonamide Allergy Severe Hives Verified 03/08/23 08:01 Antibiotics) cyclobenzaprine Allergy Mild Verified 03/08/23 08:01 doxycycline Allergy Mild Verified 03/08/23 08:01 hydrocodone bitartrate Allergy Mild Itching Verified 03/08/23 08:01 [From Vicodin] methimazole [From Tapazole] Allergy Hives Verified 03/08/23 08:01 prednisone Allergy Itching Verified 03/08/23 08:01 Home Medications Medication Instructions Recorded Confirmed Type albuterol sulfate 90 mcg/actuation 6.7 gm inhalation PRN PRN 03/09/13 03/06/23 History aerosol inhaler (Proventil HFA) fluticasone propionate 115 2 puff inhalation BID 05/08/17 03/08/23 History mcg-salmeterol 21 mcg/actuation HFA inhaler (Advair HFA) apixaban 5 mg tablet (Eliquis) 5 mg PO BID 02/19/21 03/06/23 History loratadine 10 mg tablet 10 mg PO DAILY 07/20/21 03/08/23 History vit C 250 mg-vit E 90 mg-zinc 40 1 tab PO BID 07/20/21 03/06/23 History mg-copper 1 gl-wkpxdv-kdpcuy capsule (PreserVision AREDS-2) acetaminophen 500 mg capsule 1,000 mg PO Q8H PRN PRN #90 caps 08/03/21 03/06/23 Rx sertraline 100 mg tablet 100 mg PO DAILY 08/25/22 03/08/23 History levothyroxine 25 mcg tablet 12.5 mcg PO .COMPLEX 01/12/23 03/08/23 History meclizine 12.5 mg tablet 12.5 mg PO TID PRN 01/12/23 03/06/23 History famotidine 20 mg tablet 20 mg PO DAILY 01/13/23 03/08/23 History ibuprofen 200 mg tablet 200 mg PO Q6H PRN 02/10/23 03/06/23 History modafinil 200 mg tablet (Provigil) 200 mg PO QAM 02/10/23 03/08/23 History waytvzoy-mfog-rhoc 8 mg-folic 400 1 tab PO DAILY 02/10/23 03/08/23 History mcg-K 50 mcg-lutein 300 mcg tablet (Centrum Silver Women) ondansetron HCl 4 mg tablet 4 mg PO Q6H PRN 02/10/23 03/06/23 History Exam Const General: comfortable and no acute distress Nutritional Appearance: average body habitus Orientation: alert and oriented x3 HENMT Head: normocephalic and atraumatic Resp Effort & Inspection: normal respiratory effort Auscultation: clear to auscultation bilaterally Cardio Rate: regular rate Rhythm: regular rhythm Results Last Vital Signs Temp 97.5 F L 03/08/23 07:50 Pulse 70 03/08/23 07:50 Resp 18 03/08/23 07:50 BP 150/94 H 03/08/23 07:50 Pulse Ox 98 03/08/23 07:50
--- NOTE | 2023-03-08 09:37 | STOM_PTH ---
PATIENT: Zuly Liu LOC: [facility] U#:[id number] AGE/SX: 67/F ROOM: RE03/08/[address]: Tri Hernandez MD : 1955 BED: DIS: 03/08/2023 SPEC #: [id number] RECD: 03/08/23 12:51 STATUS: RAÚL REDorian #: [id number] SHER: 03/08/23 09:[address]: Tri Hernandez DEPT: Surgical Specimen RECD BY: Josselin Montano ENTERED: 03/08/23 12:52 SP TYPE: STOMACH OTHR DR: Brenda Hedrick Tissues: 1 - STOMACH BIOPSY 2 - ESOPHAGUS BIOPSY Procedures: GROSS AND MICRO LEVEL 4 Comments: [id number]
[2023-03-08 09:49] VITALS: BP 129/75; PULSE 77; RESP 18; TEMP 36.5; O2SAT 96
[2023-03-08 10:19] VITALS: BP 146/65; PULSE 58; RESP 18; TEMP 36.6; O2SAT 100
--- NOTE | 2023-03-08 10:23 | W.ANESPOSTOP ---
Postoperative Evaluation Date, Time and Location Date Performed: 03/08/23 Time Performed: : Patient Location: Day Surgery Unit Vital Signs Most Recent Imported Vital Signs: Most Recent Vital Signs Temp Pulse Resp BP Pulse Ox 36.5 C 77 18 129/75 96 03/08/23 09:49 03/08/23 09:49 03/08/23 09:49 03/08/23 09:49 03/08/23 09:49 Pain Score Most Recent Pain Score: Most Recent Pain Score Pain Level 0 03/08/23 09:49 Assessment Mental Status: Awake (Alert & Oriented to Patient Baseline) Airway and Respiratory Function: Patent airway with normal (patient baseline) respiratory exam Cardiovascular Function: Hemodynamically Stable Hydration Status: Adequately Hydrated Nausea & Vomiting: No Nausea or Vomiting Pain: Pt. Denies Any Pain Peripheral Nerve Block: Patient did not receive a nerve block
== END 2023-03-08 10:34 | disposition home or self-care (01) ==
PROVIDERS: PCP Physician Assistant Medical; Visit Provider Surgery
PROC: 0DJ68ZZ Inspection of Stomach, Via Natural or Artificial Opening Endoscopic (ICD-10-PCS; CPT 43235; principal; 2023-03-08 09:00)
DX: K21.9 Gastro-esophageal reflux disease without esophagitis (principal); K44.9 Diaphragmatic hernia without obstruction or gangrene; K29.70 Gastritis, unspecified, without bleeding; K20.90 Esophagitis, unspecified without bleeding; D68.51 Activated protein C resistance; J45.909 Unspecified asthma, uncomplicated
CPT/HCPCS: 43239; 88305; J2001

== ENCOUNTER → 2023-03-24 08:00 | Outpatient (BNVA) | payer MEDICARE, SELFPAY | PROVIDERS: PCP Physician Assistant Medical; Referring Provider Physician Assistant Medical; Visit Provider Surgery | DX: Z48.815 Encounter for surgical aftercare following surgery on the digestive system (principal) | CPT/HCPCS: 99212 ==

== ENCOUNTER → 2023-06-07 02:32 | Outpatient (CLI) | payer MEDICARE, SELFPAY ==
--- NOTE | 2023-06-07 | DI.MAMMO_ITS ---
Exam(s) MAMMO SCREENING EXAM: MAMMO SCREENING CLINICAL HISTORY: Screening Z12.31. TECHNIQUE: Bilateral full field digital CC and MLO mammographic images were obtained with 3D tomosyn thesis and utilizing computer aided detection (CAD). COMPARISON: Prior mammograms were reviewed. FINDINGS: No new findings in the right breast. In the left breast the previously present nodular density in the inferolateral aspect of the breast h as increased in size, presently measuring 11 by 7 mm. It also appears more lobulated. Ultrasound re commended. There are no new spiculated masses nor new malignant appearing microcalcification groups. There is no significant architectural distortion nor skin thickening-retraction. IMPRESSION: 1. No radiographic evidence of malignancy in right breast. 2. 11 x 7 mm lobulated nodular density located in the inferolateral aspect of the left breast, increa sed in size from previous. Ultrasound recommended. BI-RADS Category 0 - Assessment Incomplete: Need additional imaging evaluation Breast Density - Category B - Scattered areas of fibroglandular density Breast density Category C or D implies that the patient has dense breast tissue. Dense breast tissue can make it harder to find cancer on a mammogram. Dense breast tissue is also associated with an incr eased risk of breast cancer. This information about the result of the mammogram report was provided to the patient to raise their awareness. Use this report when you speak with the patient about their risks for breast cancer, which includes their family history. At that time, you may recommend additional screening tests (Ultrasoun d or MRI) as these tests may add significant information. A negative radiographic report should not delay biopsy if a dominant or clinically suspicious mass is present. Up to ten percent of cancers are not identified on mammography. A negative report may reinforce clinical impression. Adenosis and dense breasts may obscure an underlying neoplasm. False positive reports average 6 to 10%. Patient will receive a letter notifying them of these results.
== END ==
PROVIDERS: PCP Physician Assistant Medical; Visit Provider Physician Assistant Medical
DX: Z12.31 Encounter for screening mammogram for malignant neoplasm of breast (principal)
CPT/HCPCS: 77063; 77067

== ENCOUNTER → 2023-06-13 00:57 | Outpatient (CLI) | payer MEDICARE, SELFPAY ==
--- NOTE | 2023-06-13 | DI.US_ITS ---
Exam(s) US BREAST LT LIMITED EXAM: US BREAST LT LIMITED CLINICAL HISTORY: NODULAR DENSITY LEFT BREAST, INCREASED IN SIZE, ABNL MAMMO R92.8 TECHNIQUE: Ultrasound left breast performed using standard protocol. COMPARISON: US US BREAST LT LIMITED from 10/02/2020 FINDINGS: Cyst in 4 o'clock position 8 cm from the nipple measuring 11 x 6 x 7 millimeters, mildly increased wh en compared with the prior exam. No suspicious features. No solid masses, areas of abnormal shadowing, or areas of skin thickening. IMPRESSION: Mild increased in size of previously noted cyst in the lateral left breast. BI-RADS Category 2 - Benign Findings Bilateral screening mammography recommended in 1 year. DATA REPOSITORY:
== END ==
PROVIDERS: PCP Physician Assistant Medical; Visit Provider Physician Assistant Medical
DX: N60.02 Solitary cyst of left breast (principal); Z12.31 Encounter for screening mammogram for malignant neoplasm of breast
CPT/HCPCS: 76642

== ENCOUNTER 2023-08-07 15:07 | Outpatient (CLI) | payer MEDICARE, SELFPAY ==
--- NOTE | 2023-08-07 08:23 | DI.RAD_ITS ---
Exam(s) XR KNEE LT 2V AP,LAT EXAM: XR KNEE LT 2V AP,LAT CLINICAL HISTORY: ANNUAL F/U L TKA. TECHNIQUE: 2D digital imaging was performed. Two images were obtained. AP and lateral views were ob tained. COMPARISON: CR XR KNEE LT 2V AP,LAT from 08/08/2022 FINDINGS: BONES: There are stable post operative changes of a left total knee replacement present. No fracture or dislocation. JOINTS: The orthopedic hardware is in good position. No evidence of hardware loosening. There is a tiny suprapatellar joint effusion. SOFT TISSUE: Normal. IMPRESSION: Stable postoperative changes. DATA REPOSITORY: RADIATION DOSE DELIVERED:
== END 2023-08-07 15:08 | disposition home or self-care (01) ==
LOC: DIORS 15:19
PROVIDERS: PCP Physician Assistant Medical; Visit Provider Student in an Organized Health Care Education/Training Program
DX: Z47.1 Aftercare following joint replacement surgery (principal); Z96.652 Presence of left artificial knee joint
CPT/HCPCS: 99213; 73560

== ENCOUNTER 2023-10-03 16:59 | Outpatient (REF) | payer MEDICARE, SELFPAY ==
[2023-10-03 16:00] LABS: Abs Immature Grans 0.07 10^3/uL (0.0-0.06); Absolute Basophil Count 0.08 10^3/uL (0.0-0.2); Absolute Eosinophil Count 0.16 10^3/uL (0.0-0.7); Absolute Monocyte Count 0.58 10^3/uL (0.1-0.8); Absolute Neutrophil Count 7.51 10^3/uL (1.2-6.7); Basophils % 0.8; Eosinophils % 1.6; HCT 38.4 % (36.0-46.0); HGB 12.8 g/dL (11.2-15.7); Immature Grans % 0.7; MCH 29.3 pg (27.0-33.0); MCHC 33.3 % (32.0-36.0); MCV 88 fL (80-95); MPV 10.7 fL (8.0-11.0); Monocytes % 5.8; Neutrophils % 75.1; Platelet Count 513 10^3/uL (130-400); RBC 4.37 10^6/uL (3.93-5.22); RDW 13.4 % (11.7-14.6); RDW-SD 43.3 fL
[2023-10-03 16:35] LABS: Hemoglobin A1C 5.9 % (<5.7)
[2023-10-03 16:52] LABS: ALT 29 U/L (14-59); AST 26 U/L (15-37); Albumin 3.8 g/dL (3.4-5.0); Alkaline Phosphatase 111 U/L (46-116); Anion Gap 12.2 mmol/L (3-11); Bilirubin, Total 0.6 mg/dL (0.2-1.0); CO2 22.8 mmol/L (21.0-32.0); CREATININE 0.8 mg/dL (0.55-1.02); Calculated LDL 93 mg/dL (<100); Chloride 105 mmol/L (98-107); Cholesterol 195 mg/dL (<200); Estimated GFR 80.21 (mL/min/1.73m2); Glucose 105 mg/dL (74-106); HDL Cholesterol 72 mg/dL (40-60); Potassium 4.3 mmol/L (3.5-5.1); Sodium 140 mmol/L (136-145); TSH (W/Ref FT4) 2.41 uIU/mL (0.36-3.74); Total Protein 7.4 g/dL (6.4-8.2); Triglyceride 154 mg/dL (<150)
[2023-10-03 17:03] LABS: BUN 14 mg/dL (7-18); Calcium 8.7 mg/dL (8.5-10.1)
== END 2023-10-03 17:00 | disposition home or self-care (01) ==
LOC: NCHCN 16:59
PROVIDERS: PCP Physician Assistant Medical; Visit Provider Physician Assistant Medical
DX: E03.9 Hypothyroidism, unspecified (principal); R73.03 Prediabetes
CPT/HCPCS: 80053; 80061; 83036; 84443; 85025

== ENCOUNTER → 2023-10-24 04:46 | Outpatient (CLI) | payer MEDICARE, SELFPAY ==
--- NOTE | 2023-10-24 10:06 | DI.RAD_ITS ---
Exam(s) XR HAND LT COMPLETE EXAM: XR HAND LT COMPLETE CLINICAL HISTORY: PAIN LT HAND, M79.642. TECHNIQUE: 2D digital imaging was performed of the left hand. Three views were obtained. AP, later al and oblique views were obtained. COMPARISON: CR RIGHT MIDDLE FINGER from 01/05/2015 FINDINGS: BONES: No acute fracture is present. No bony destructive lesion is seen. JOINTS: No dislocation present. Mild degenerative changes are seen in the hand characterized by joint space narrowing and osteophytes. The findings are most marked at the 1st CMC joint and the interpha langeal joints of the fingers. SOFT TISSUE: Normal. 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 DATA REPOSITORY: RADIATION DOSE DELIVERED:
--- NOTE | 2023-10-24 10:07 | DI.RAD_ITS ---
Exam(s) XR HAND RT COMPLETE EXAM: XR HAND RT COMPLETE CLINICAL HISTORY: PAIN RT HAND, M79.641. TECHNIQUE: 2D digital imaging was performed of the right hand. Three images were obtained. AP, late ral and oblique views were obtained. COMPARISON: CR RIGHT THUMB from 06/17/2016 FINDINGS: BONES: No acute fracture is present. No bony destructive lesion is seen. JOINTS: No dislocation present. There are mild degenerative changes seen in the right hand and wrist characterized by joint space narrowing and osteophytes. The metacarpophalangeal joints are well main tained. SOFT TISSUE: Normal. IMPRESSION: Mild degenerative changes of the right hand and wrist as described. DATA REPOSITORY: RADIATION DOSE DELIVERED:
== END ==
PROVIDERS: PCP Physician Assistant Medical; Visit Provider Physician Assistant Medical
DX: M19.041 Primary osteoarthritis, right hand (principal); M19.042 Primary osteoarthritis, left hand
CPT/HCPCS: 73130

== ENCOUNTER → 2023-12-14 11:26 | Outpatient (BNVA) | payer MEDICARE, SELFPAY | PROVIDERS: PCP Physician Assistant Medical; Referring Provider Physician Assistant Medical; Visit Provider Surgery | DX: L90.5 Scar conditions and fibrosis of skin (principal); M79.89 Other specified soft tissue disorders | CPT/HCPCS: 99213 ==